=== PATIENT | male | born 1955 | race Caucasian/White ===

== ENCOUNTER 2018-04-02 09:16 | Inpatient (IN) | payer MEDICAID, OTHER ==
[~2018-04-02] VITALS: Ht 177.8 cm; Wt 74.8 kg
[~2018-04-02 09:16] MED LIST: ACET-2247 PO; ASPI-556 PO; ATOR40TA28 PO; AUD NEB; BISA5TAB12 PO; CARV6 PO; FURO20 PO; LEVO750P3 PO; PANT40TA25 PEG
[2018-04-02] MEDS ORDERED: BISA5TAB12 PO (09:27)
[2018-04-02] MEDS ORDERED: FLUC100T PO (09:27)
[2018-04-02] MEDS ORDERED: ATOR10TA84 PO (09:27)
[2018-04-02] MEDS ORDERED: SAW/1TAB2 PO (09:28)
[2018-04-02 09:34] LABS: GLUCOSE,POINT OF CARE 368 MG/DL (70-110)
[2018-04-02] MEDS ORDERED: SODIUM CHLORIDE 0.9% 1,000 ML IV ONE ×2 (09:45→11:15)
[2018-04-02 09:54] LABS: BASOPHILS % (AUTO) 0.5 % (0.0-2.0); EOSINOPHILS % (AUTO) 0 % (1.0-6.0); HEMATOCRIT 43.6 % (41-53); HEMOGLOBIN 14.4 g/dL (13.5-17.5); LYMPHOCYTES # (AUTO) 1.7 K/uL (1.0-4.8); LYMPHOCYTES % (AUTO) 8.6 % (22.0-44.0); MEAN CORPUSCULAR HEMOGLOBIN 31.3 pg (26.0-34.0); MEAN CORPUSCULAR HGB CONC 33.1 G/dL (31.0-37.0); MEAN CORPUSCULAR VOLUME 95 fL (80-100); MONOCYTES # (AUTO) 1.4 K/uL (0.1-1.0); MONOCYTES % (AUTO) 7.1 % (2.0-9.0); NEUTROPHILS # (AUTO) 16.2 K/uL (1.8-7.7); NEUTROPHILS % (AUTO) 83.8 % (40.0-70.0); PLATELET COUNT (AUTO) 507 K/uL (150-450); RED BLOOD CELL COUNT(AUTO) 4.61 MIL/uL (4.50-5.90); RED CELL DISTRIBUTION WIDTH 13.3 % (11.5-14.5)
[2018-04-02] MEDS ORDERED: ACETAMINOPHEN 1000 MG/ISO-OSM 100 ML IV ONE (10:00)
[2018-04-02 10:04] LABS: APPEARANCE,URINE CLEAR (CLEAR); BILIRUBIN,URINE NEGATIVE (NEGATIVE); GLUCOSE, URINE (UA) 100 mg/dL (NEGATIVE); KETONES,URINE NEGATIVE (NEGATIVE); LEUKOCYTE ESTERASE ,URINE NEGATIVE (NEGATIVE); NITRATE,URINE NEGATIVE (NEGATIVE); OCCULT BLOOD,URINE NEGATIVE (NEGATIVE); PH,URINE 5.5 (5.0-8.0); PROTEIN,URINE POS 1+ (NEGATIVE); UROBILINOGEN,URINE 0.2 mg/dL (<=1.0)
[2018-04-02 10:09] LABS: ANION GAP 14 mmol/L (8-16); CALCIUM, TOTAL 9.4 mg/dL (8.8-10.5); CARBON DIOXIDE 25 mmol/L (22-29); CHLORIDE 109 mmol/L (98-107); CREATININE 2.69 mg/dL (0.60-1.30); GLOMERULAR FILTR. RATE CALC 24 mL/min (>60); GLUCOSE,RANDOM 375 mg/dL (70-110); POTASSIUM 5.9 mmol/L (3.5-5.1); SODIUM SERUM 148 mmol/L (136-145); UREA NITROGEN, BLOOD 79 mg/dL (7-18)
[2018-04-02 10:11] LABS: INR 1.1 (0.9-1.1)
[2018-04-02 10:27] LABS: BACTERIA,URINE None Seen /HPF (None Seen); HYALINE CASTS, URINE 0-2 /LPF (None Seen); RBC,URINE 0-2 /HPF (0-2); TRANSITIONAL EPI CELLS,URINE Few /LPF (None Seen); WBC,URINE 0-2 /HPF (0-5)
[2018-04-02 10:32] LABS: ALANINE AMINOTRANSFERASE 75 U/L (12-78); ALBUMIN 3.4 g/dL (3.4-5.0); ALKALINE PHOSPHATASE 89 U/L (46-116); ASPARTATE AMINOTRANSFERASE 34 U/L (15-37); BILIRUBIN,TOTAL 0.5 mg/dL (0.1-1.0); CREATINE KINASE, TOTAL 109 U/L (39-308)
[2018-04-02 10:58] LABS: B-TYPE NATRIURETIC PEPTIDE 4070 pg/mL (0-100)
[2018-04-02] MEDS ORDERED: INSULIN REGULAR, HUMAN 100 UNITS/ML SQ ONE (11:00)
[2018-04-02] MEDS ORDERED: PIPERACILLIN/TAZO 3.375 GM/D5W 50 ML IV ONE (11:00)
[2018-04-02] MEDS ORDERED: VANCOMYCIN HCL 1 GM/D5% WATER 200 ML IV ONE (11:00)
[2018-04-02 11:01] LABS: LACTIC ACID 3.3 mmol/L (0.4-2.0)
[2018-04-02 11:28] LABS: GLUCOSE,POINT OF CARE 334 MG/DL (70-110)
[2018-04-02 12:13] LABS: INFLUENZA TYPE A NEGATIVE FOR TYPE A (NEGATIVE); INFLUENZA TYPE B NEGATIVE FOR TYPE B (NEGATIVE)
[2018-04-02] MEDS ORDERED: 0.9% SODIUM CHLORIDE 10 ML SYRINGE IVP PRN (12:15)
[2018-04-02] MEDS ORDERED: ACETAMINOPHEN 325 MG TABLET PO PRN (12:15)
[2018-04-02] MEDS ORDERED: BISACODYL 10 MG RECTAL RECTAL SUPPOSITORY PR PRN (12:30)
[2018-04-02] MEDS ORDERED: DEXTROSE 50%-WATER 25 GM/50 ML SYRINGE IVP PRN (12:30)
[2018-04-02] MEDS ORDERED: ALBUTEROL SULFATE 2.5 MG/0.5 ML NEB SOLUTION NEB PRN (12:30)
[2018-04-02] MEDS ORDERED: ONDANSETRON HCL 4 MG/2 ML VIAL IVP PRN (12:30)
[2018-04-02] MEDS ORDERED: SODIUM POLYSTYRENE SULFONATE 15 GM/60 ML SUSPENSION BOTTLE PO ONE (12:45)
[2018-04-02 12:59] LABS: GLUCOSE,POINT OF CARE 337 MG/DL (70-110)
[2018-04-02] MEDS ORDERED: ASPIRIN 600 MG RECTAL SUPPOSITORY PR ONE (14:15)
[2018-04-02] MEDS ORDERED: ASPIRIN 300 MG RECTAL SUPPOSITORY PR ONE (14:15)
[2018-04-02] MEDS: ASPIRIN 81 MG CHEWABLE TABLET PO SCH (14:58)
[2018-04-02] MEDS ORDERED: DOPamine HCL 200 MG/D5%-WATER 250 ML IV PRN (15:00)
[2018-04-02] MEDS ORDERED: DOPamine HCL 400 MG/D5%-WATER 250 ML IV PRN (15:00)
[2018-04-02 15:40] LABS: CALCIUM, TOTAL 9.1 mg/dL (8.8-10.5); CREATININE 2.91 mg/dL (0.60-1.30)
[2018-04-02 15:43] LABS: POTASSIUM 5.9 mmol/L (3.5-5.1)
[2018-04-02 15:56] LABS: ABG A-A DIFF O2 206.2 mmHg (10-20.0); ABG BASE EXCESS -4.5 mmol/L (-2.0-3.0); ABG CARBOXYHEMOGLOBIN 0.7 % (0.0-1.5); ABG HCO3 21.2 mmol/L (22.0-26.0); ABG METHEMOGLOBIN 0.2 % (0.0-1.5); ABG OXYHEMOGLOBIN 99.1 % (94.0-100.0); ABG PCO2 39 mmHg (35-45); ABG PH 7.349 (7.35-7.450); ABG TOTAL HEMOGLOBIN 14.2 G/dL (12.0-18.0); PO2, ARTERIAL BG 467.5 mmHg (79.0-87.0); SOURCE, BLOOD GAS ARTERIAL; TEMPERATURE, FAHRENHEIT, BG 98.6 FAHREN (96.0-98.6)
[2018-04-02 15:57] LABS: O2 DEVICE,BLOOD GAS VENTILATOR (ROOM AIR); PEEP,BG 5 cm H2O; SITE, BLOOD GAS RT RADIAL; VT, ABG 500 ml
[2018-04-02 16:00] VITALS: BP_SYST 103; BP_SYST 104; BP_DIAS 81; BP_DIAS 82
[2018-04-02] MEDS ORDERED: SODIUM CHLORIDE 0.9% 500 ML IV ONE (16:01)
[2018-04-02] MEDS: PIPERACILLIN SODIUM/TAZOBACTAM 2.25 GM in DEXTROSE 5%-WATER 50 ML IV SCH ×2 (16:04→22:59)
[2018-04-02 16:13] LABS: LACTIC ACID 4.5 mmol/L (0.4-2.0)
[2018-04-02] MEDS: INSULIN LISPRO 100 UNITS/ML SQ PRN ×2 (16:21→23:38)
[2018-04-02] MEDS ORDERED: PHENYLEPHRINE 200 MG/D5%-WATER 250 ML IV PRN (16:56)
[2018-04-02] MEDS ORDERED: SODIUM POLYSTYRENE SULFONATE 15 GM/60 ML SUSPENSION BOTTLE PEG ONE (17:45)
[2018-04-02 18:00] VITALS: BP 90/60
[2018-04-02] MEDS ORDERED: WATER FOR INJECTION,STERILE 500 ML in DEXTROSE 5%-WATER 500 ML IV SCH (18:30)
[2018-04-02 18:59] LABS: GLUCOSE,POINT OF CARE 351 MG/DL (70-110)
[2018-04-02 20:00] VITALS: BP 116/61
[2018-04-02] MEDS: DOCUSATE SODIUM 100 MG CAPSULE PO SCH (20:18)
[2018-04-02] MEDS: SODIUM POLYSTYRENE SULFONATE 15 GM/60 ML SUSPENSION BOTTLE PEG SCH (20:18)
[2018-04-02] MEDS: HEPARIN SODIUM,PORCINE 5,000 UNITS/ML VIAL SQ SCH (20:20)
[2018-04-02] MEDS: MetroNIDAZOLE 500 MG/NACL 100 ML IV SCH (21:15)
[2018-04-02] MEDS ORDERED: SODIUM CHLORIDE 0.9% 250 ML IV ONE (21:16)
[2018-04-02] MEDS ORDERED: BARIUM SULFATE 0.1% SUSPENSION 450 ML BOTTLE ONE (21:17)
[2018-04-02 21:34] LABS: C.DIFF GDH ANTIGEN, Stool Negative (Negative); C.DIFF TOXINS A&B, Stool Negative (Negative)
[2018-04-02 21:57] LABS: POTASSIUM 4.2 mmol/L (3.5-5.1)
[2018-04-03] VITALS: BP 124/82
[2018-04-03 00:06] LABS: BILIRUBIN,TOTAL 0.8 mg/dL (0.1-1.0); CREATININE 2.89 mg/dL (0.60-1.30); PHOSPHORUS 5.6 mg/dL (2.5-4.9)
[2018-04-03 00:07] LABS: ALBUMIN 3.1 g/dL (3.4-5.0)
[2018-04-03 04:00] VITALS: BP 104/70
[2018-04-03] MEDS: PIPERACILLIN SODIUM/TAZOBACTAM 2.25 GM in DEXTROSE 5%-WATER 50 ML IV SCH ×4 (04:54→23:22)
[2018-04-03 05:16] LABS: BASOPHILS % (AUTO) 0.7 % (0.0-2.0); EOSINOPHILS % (AUTO) 0.3 % (1.0-6.0); HEMATOCRIT 38.5 % (41-53); HEMOGLOBIN 12.8 g/dL (13.5-17.5); LYMPHOCYTES # (AUTO) 1.8 K/uL (1.0-4.8); LYMPHOCYTES % (AUTO) 9.7 % (22.0-44.0); MEAN CORPUSCULAR HEMOGLOBIN 31.8 pg (26.0-34.0); MEAN CORPUSCULAR HGB CONC 33.4 G/dL (31.0-37.0); MEAN CORPUSCULAR VOLUME 95 fL (80-100); MONOCYTES # (AUTO) 1.8 K/uL (0.1-1.0); MONOCYTES % (AUTO) 9.6 % (2.0-9.0); NEUTROPHILS # (AUTO) 14.9 K/uL (1.8-7.7); NEUTROPHILS % (AUTO) 79.7 % (40.0-70.0); PLATELET COUNT (AUTO) 385 K/uL (150-450); RED BLOOD CELL COUNT(AUTO) 4.04 MIL/uL (4.50-5.90); RED CELL DISTRIBUTION WIDTH 13.4 % (11.5-14.5)
[2018-04-03] MEDS: MetroNIDAZOLE 500 MG/NACL 100 ML IV SCH ×3 (05:26→20:03)
[2018-04-03 05:31] LABS: ALBUMIN 2.9 g/dL (3.4-5.0); BILIRUBIN,TOTAL 0.8 mg/dL (0.1-1.0); CALCIUM, TOTAL 8.8 mg/dL (8.8-10.5); CREATININE 2.45 mg/dL (0.60-1.30); POTASSIUM 3.6 mmol/L (3.5-5.1); TOTAL PROTEIN, SERUM 7.6 g/dL (6.4-8.2)
[2018-04-03 06:44] LABS: GLUCOSE,POINT OF CARE 268 MG/DL (70-110)
[2018-04-03 08:00] VITALS: BP 130/77
[2018-04-03] MEDS: VANCOMYCIN HCL 1 GM/D5% WATER 200 ML IV SCH (08:22)
[2018-04-03] MEDS: INSULIN LISPRO 100 UNITS/ML SQ PRN ×4 (08:26→23:23)
[2018-04-03 08:32] LABS: ABG A-A DIFF O2 66.3 mmHg (10-20.0); ABG BASE EXCESS 2.4 mmol/L (-2.0-3.0); ABG CARBOXYHEMOGLOBIN 0.7 % (0.0-1.5); ABG HCO3 26.7 mmol/L (22.0-26.0); ABG METHEMOGLOBIN 0.1 % (0.0-1.5); ABG OXYGEN CONTENT 18.9 mL/dL (15.0-23.0); ABG OXYGEN SATURATION 99.4 % (95.0-98.0); ABG OXYHEMOGLOBIN 98.6 % (94.0-100.0); ABG PCO2 39 mmHg (35-45); ABG PH 7.448 (7.35-7.450); ABG TOTAL HEMOGLOBIN 13.4 G/dL (12.0-18.0); O2 DEVICE,BLOOD GAS VENTILATOR (ROOM AIR); PEEP,BG 5 cm H2O; PO2, ARTERIAL BG 173.9 mmHg (79.0-87.0); SITE, BLOOD GAS RT RADIAL; SOURCE, BLOOD GAS ARTERIAL; TEMPERATURE, FAHRENHEIT, BG 98.8 FAHREN (96.0-98.6); VT, ABG 500 ml
[2018-04-03] MEDS: DOCUSATE SODIUM 100 MG CAPSULE PO SCH ×2 (09:00→20:03)
[2018-04-03] MEDS: CARVEDILOL 3.125 MG TABLET PO SCH ×2 (09:00→20:03)
[2018-04-03] MEDS: SODIUM POLYSTYRENE SULFONATE 15 GM/60 ML SUSPENSION BOTTLE PEG SCH (09:00)
[2018-04-03] MEDS: ATORVASTATIN CALCIUM 20 MG TABLET PO SCH (09:18)
[2018-04-03] MEDS: PANTOPRAZOLE SODIUM 40 MG DR TABLET PO SCH (09:18)
[2018-04-03] MEDS: HEPARIN SODIUM,PORCINE 5,000 UNITS/ML VIAL SQ SCH ×2 (09:18→20:03)
[2018-04-03] MEDS: ASPIRIN 81 MG CHEWABLE TABLET PO SCH (09:19)
[2018-04-03 10:34] LABS: GLUCOSE,POINT OF CARE 225 MG/DL (70-110)
[2018-04-03 12:00] VITALS: BP 102/59
[2018-04-03 12:19] LABS: GLUCOSE,POINT OF CARE 247 MG/DL (70-110)
[2018-04-03 16:00] VITALS: BP 116/82
[2018-04-03 16:49] LABS: CALCIUM, TOTAL 8.6 mg/dL (8.8-10.5); CREATININE 2.02 mg/dL (0.60-1.30); POTASSIUM 3.4 mmol/L (3.5-5.1)
[2018-04-03 16:57] LABS: LACTIC ACID 1.8 mmol/L (0.4-2.0)
[2018-04-03] MEDS ORDERED: AMIODARONE HCL 50 MG/ML 3 ML VIAL IVP ONE (17:13)
[2018-04-03] MEDS: POTASSIUM CHL 10 MEQ/WATER 50 ML IV SCH ×2 (17:24→18:04)
[2018-04-03 17:44] LABS: GLUCOSE,POINT OF CARE 191 MG/DL (70-110)
[2018-04-03 20:00] VITALS: BP 118/76
[2018-04-04] VITALS: BP 104/68
[2018-04-04 04:00] VITALS: BP 118/76
[2018-04-04] MEDS: PIPERACILLIN SODIUM/TAZOBACTAM 2.25 GM in DEXTROSE 5%-WATER 50 ML IV SCH ×4 (04:55→23:31)
[2018-04-04 05:16] LABS: BASOPHILS % (AUTO) 0.5 % (0.0-2.0); EOSINOPHILS % (AUTO) 1.8 % (1.0-6.0); HEMATOCRIT 35.9 % (41-53); LYMPHOCYTES # (AUTO) 2.2 K/uL (1.0-4.8); LYMPHOCYTES % (AUTO) 13.6 % (22.0-44.0); MEAN CORPUSCULAR HEMOGLOBIN 31.5 pg (26.0-34.0); MEAN CORPUSCULAR HGB CONC 33.3 G/dL (31.0-37.0); MEAN CORPUSCULAR VOLUME 95 fL (80-100); MONOCYTES # (AUTO) 1.5 K/uL (0.1-1.0); MONOCYTES % (AUTO) 9.5 % (2.0-9.0); NEUTROPHILS # (AUTO) 11.8 K/uL (1.8-7.7); NEUTROPHILS % (AUTO) 74.6 % (40.0-70.0); PLATELET COUNT (AUTO) 351 K/uL (150-450); RED CELL DISTRIBUTION WIDTH 13.1 % (11.5-14.5)
[2018-04-04 05:24] LABS: ALBUMIN 2.7 g/dL (3.4-5.0); BILIRUBIN,TOTAL 0.9 mg/dL (0.1-1.0); CALCIUM, TOTAL 8.7 mg/dL (8.8-10.5); CREATININE 1.99 mg/dL (0.60-1.30); MAGNESIUM 2.2 mg/dL (1.80-2.40); POTASSIUM 3.9 mmol/L (3.5-5.1); TOTAL PROTEIN, SERUM 7.1 g/dL (6.4-8.2)
[2018-04-04] MEDS: MetroNIDAZOLE 500 MG/NACL 100 ML IV SCH ×2 (05:25→12:56)
[2018-04-04] MEDS: INSULIN LISPRO 100 UNITS/ML SQ PRN ×4 (05:26→23:33)
[2018-04-04 06:59] LABS: GLUCOSE,POINT OF CARE 190 MG/DL (70-110)
[2018-04-04 06:59] LABS: GLUCOSE,POINT OF CARE 174 MG/DL (70-110)
[2018-04-04 08:00] VITALS: BP 117/77
[2018-04-04] MEDS: VANCOMYCIN HCL 1 GM/D5% WATER 200 ML IV SCH (08:30)
[2018-04-04] MEDS: DOCUSATE SODIUM 100 MG CAPSULE PO SCH ×2 (09:00→20:02)
[2018-04-04] MEDS: ASPIRIN 81 MG CHEWABLE TABLET PO SCH (09:14)
[2018-04-04] MEDS: ATORVASTATIN CALCIUM 20 MG TABLET PO SCH (09:15)
[2018-04-04] MEDS: PANTOPRAZOLE SODIUM 40 MG DR TABLET PO SCH (09:15)
[2018-04-04] MEDS: CARVEDILOL 3.125 MG TABLET PO SCH ×2 (09:15→20:02)
[2018-04-04] MEDS: HEPARIN SODIUM,PORCINE 5,000 UNITS/ML VIAL SQ SCH ×2 (09:16→20:02)
[2018-04-04 12:00] VITALS: BP 93/59
[2018-04-04] MEDS: LevETIRAcetam 500 MG in DEXTROSE 5%-WATER 100 ML IV SCH (13:56)
[2018-04-04 16:00] VITALS: BP 111/76
[2018-04-04 19:08] LABS: GLUCOSE,POINT OF CARE 191 MG/DL (70-110)
[2018-04-04 19:08] LABS: GLUCOSE,POINT OF CARE 215 MG/DL (70-110)
[2018-04-04 20:00] VITALS: BP 102/67
[2018-04-04] MEDS ORDERED: SODIUM CHLORIDE 0.9% 100 ML ONE (21:10)
[2018-04-05] VITALS: BP 109/73
[2018-04-05] MEDS: LevETIRAcetam 500 MG in DEXTROSE 5%-WATER 100 ML IV SCH ×2 (01:11→12:43)
[2018-04-05 04:00] VITALS: BP 101/63
[2018-04-05 05:25] LABS: CALCIUM, TOTAL 8.3 mg/dL (8.8-10.5); CREATININE 1.7 mg/dL (0.60-1.30); POTASSIUM 3.6 mmol/L (3.5-5.1); VANCOMYCIN,RANDOM 16.5 mcg/mL (25.0-50.0)
[2018-04-05] MEDS: PIPERACILLIN SODIUM/TAZOBACTAM 2.25 GM in DEXTROSE 5%-WATER 50 ML IV SCH (05:41)
[2018-04-05] MEDS: INSULIN LISPRO 100 UNITS/ML SQ PRN ×4 (05:42→23:18)
[2018-04-05 08:00] VITALS: BP 108/77
[2018-04-05 08:14] LABS: GLUCOSE,POINT OF CARE 190 MG/DL (70-110)
[2018-04-05 08:14] LABS: GLUCOSE,POINT OF CARE 255 MG/DL (70-110)
[2018-04-05] MEDS: VANCOMYCIN HCL 1.25 GM in DEXTROSE 5%-WATER 250 ML IV SCH (08:47)
[2018-04-05] MEDS: ASPIRIN 81 MG CHEWABLE TABLET PO SCH (08:48)
[2018-04-05] MEDS: ATORVASTATIN CALCIUM 20 MG TABLET PO SCH (08:48)
[2018-04-05] MEDS: HEPARIN SODIUM,PORCINE 5,000 UNITS/ML VIAL SQ SCH ×2 (08:48→20:04)
[2018-04-05] MEDS: PANTOPRAZOLE SODIUM 40 MG DR TABLET PO SCH (08:48)
[2018-04-05] MEDS: DOCUSATE SODIUM 100 MG CAPSULE PO SCH ×2 (08:48→20:05)
[2018-04-05] MEDS: CARVEDILOL 3.125 MG TABLET PO SCH ×2 (08:48→20:03)
[2018-04-05 09:02] LABS: ABG A-A DIFF O2 57.9 mmHg (10-20.0); ABG BASE EXCESS 1.7 mmol/L (-2.0-3.0); ABG CARBOXYHEMOGLOBIN 0.5 % (0.0-1.5); ABG HCO3 26.1 mmol/L (22.0-26.0); ABG METHEMOGLOBIN 0.3 % (0.0-1.5); ABG OXYGEN CONTENT 16.8 mL/dL (15.0-23.0); ABG OXYGEN SATURATION 99.3 % (95.0-98.0); ABG OXYHEMOGLOBIN 98.5 % (94.0-100.0); ABG PCO2 37 mmHg (35-45); ABG PH 7.457 (7.35-7.450); ABG TOTAL HEMOGLOBIN 11.9 G/dL (12.0-18.0); O2 DEVICE,BLOOD GAS VENTILATOR (ROOM AIR); PO2, ARTERIAL BG 148.8 mmHg (79.0-87.0); SITE, BLOOD GAS RT RADIAL; SOURCE, BLOOD GAS ARTERIAL; TEMPERATURE, FAHRENHEIT, BG 98.2 FAHREN (96.0-98.6)
[2018-04-05] MEDS ORDERED: SODIUM CHLORIDE 0.9% 100 ML ONE (09:02)
[2018-04-05 09:03] LABS: PEEP,BG 5 cm H2O; VT, ABG 500 ml
[2018-04-05] MEDS: PIPERACILLIN/TAZO 3.375 GM/D5W 50 ML IV SCH ×3 (11:01→23:18)
[2018-04-05 12:00] VITALS: BP 114/77
[2018-04-05 15:29] LABS: GLUCOSE,POINT OF CARE 316 MG/DL (70-110)
[2018-04-05 16:00] VITALS: BP 102/73
[2018-04-05 18:34] LABS: GLUCOSE,POINT OF CARE 279 MG/DL (70-110)
[2018-04-05 19:15] LABS: ABG A-A DIFF O2 66.5 mmHg (10-20.0); ABG BASE EXCESS 1.4 mmol/L (-2.0-3.0); ABG CARBOXYHEMOGLOBIN 0.9 % (0.0-1.5); ABG HCO3 26.1 mmol/L (22.0-26.0); ABG METHEMOGLOBIN 0.3 % (0.0-1.5); ABG OXYGEN CONTENT 17.9 mL/dL (15.0-23.0); ABG OXYGEN SATURATION 99.3 % (95.0-98.0); ABG OXYHEMOGLOBIN 98.1 % (94.0-100.0); ABG PCO2 34 mmHg (35-45); ABG PH 7.481 (7.35-7.450); ABG TOTAL HEMOGLOBIN 12.8 G/dL (12.0-18.0); PO2, ARTERIAL BG 143.2 mmHg (79.0-87.0); SOURCE, BLOOD GAS ARTERIAL; TEMPERATURE, FAHRENHEIT, BG 99.1 FAHREN (96.0-98.6)
[2018-04-05 19:16] LABS: O2 DEVICE,BLOOD GAS VENTILATOR (ROOM AIR); PEEP,BG 5 cm H2O; PRESSURE SUPPORT, BG 8 cm H2O; SITE, BLOOD GAS LFT RADIAL; VENT MODE, BG CPAP (ROOM AIR)
[2018-04-05 19:17] LABS: SPONTANEOUS VT, BG 469 ml
[2018-04-05 20:00] VITALS: BP 109/70
[2018-04-05] MEDS: INSULIN GLARGINE,HUM.REC.ANLOG 100 UNITS/ML SQ SCH (20:05)
[2018-04-05 20:34] LABS: GLUCOSE,POINT OF CARE 214 MG/DL (70-110)
[2018-04-06] VITALS: BP 114/75
[2018-04-06 04:00] VITALS: BP 106/66
[2018-04-06] MEDS: INSULIN LISPRO 100 UNITS/ML SQ PRN ×3 (05:22→19:03)
[2018-04-06] MEDS: PIPERACILLIN/TAZO 3.375 GM/D5W 50 ML IV SCH ×2 (05:23→10:26)
[2018-04-06 05:31] LABS: BASOPHILS % (AUTO) 0.4 % (0.0-2.0); EOSINOPHILS % (AUTO) 3.9 % (1.0-6.0); HEMATOCRIT 33.3 % (41-53); HEMOGLOBIN 11.2 g/dL (13.5-17.5); LYMPHOCYTES # (AUTO) 1.7 K/uL (1.0-4.8); MEAN CORPUSCULAR HEMOGLOBIN 31.9 pg (26.0-34.0); MEAN CORPUSCULAR HGB CONC 33.8 G/dL (31.0-37.0); MEAN CORPUSCULAR VOLUME 94 fL (80-100); MONOCYTES # (AUTO) 0.9 K/uL (0.1-1.0); MONOCYTES % (AUTO) 7.9 % (2.0-9.0); NEUTROPHILS # (AUTO) 8.3 K/uL (1.8-7.7); NEUTROPHILS % (AUTO) 72.8 % (40.0-70.0); PLATELET COUNT (AUTO) 311 K/uL (150-450); RED BLOOD CELL COUNT(AUTO) 3.53 MIL/uL (4.50-5.90); RED CELL DISTRIBUTION WIDTH 12.8 % (11.5-14.5)
[2018-04-06 05:33] LABS: CREATININE 1.64 mg/dL (0.60-1.30); POTASSIUM 3.6 mmol/L (3.5-5.1)
[2018-04-06 05:34] LABS: CALCIUM, TOTAL 8.3 mg/dL (8.8-10.5)
[2018-04-06 07:54] LABS: GLUCOSE,POINT OF CARE 199 MG/DL (70-110)
[2018-04-06 07:54] LABS: GLUCOSE,POINT OF CARE 240 MG/DL (70-110)
[2018-04-06 08:00] VITALS: BP 116/75
[2018-04-06] MEDS: VANCOMYCIN HCL 1.25 GM in DEXTROSE 5%-WATER 250 ML IV SCH (08:53)
[2018-04-06] MEDS: DOCUSATE SODIUM 100 MG CAPSULE PO SCH ×2 (09:14→21:00)
[2018-04-06] MEDS: ASPIRIN 81 MG CHEWABLE TABLET PO SCH (09:15)
[2018-04-06] MEDS: CARVEDILOL 3.125 MG TABLET PO SCH ×2 (09:15→21:25)
[2018-04-06] MEDS: MAGNESIUM OXIDE 400 MG TABLET PO SCH (09:15)
[2018-04-06] MEDS: ATORVASTATIN CALCIUM 20 MG TABLET PO SCH (09:15)
[2018-04-06] MEDS: PANTOPRAZOLE SODIUM 40 MG/VIAL IVP SCH (09:16)
[2018-04-06] MEDS: HEPARIN SODIUM,PORCINE 5,000 UNITS/ML VIAL SQ SCH ×2 (09:16→21:25)
[2018-04-06] MEDS ORDERED: SODIUM CHLORIDE 0.9% 500 ML IV ONE (09:47)
[2018-04-06 12:00] VITALS: BP 105/68
[2018-04-06 12:59] LABS: GLUCOSE,POINT OF CARE 295 MG/DL (70-110)
[2018-04-06 16:00] VITALS: BP 100/62
[2018-04-06] MEDS: MEROPENEM 1 GM in SODIUM CHLORIDE 0.9% 100 ML IV SCH (17:35)
[2018-04-06 19:34] LABS: GLUCOSE,POINT OF CARE 287 MG/DL (70-110)
[2018-04-06 20:00] VITALS: BP 113/73
[2018-04-06] MEDS: INSULIN GLARGINE,HUM.REC.ANLOG 100 UNITS/ML SQ SCH (21:27)
[2018-04-07] VITALS: BP 99/66
[2018-04-07] MEDS: INSULIN LISPRO 100 UNITS/ML SQ PRN ×4 (00:10→17:28)
[2018-04-07 02:13] LABS: GLUCOSE,POINT OF CARE 230 MG/DL (70-110)
[2018-04-07 02:13] LABS: GLUCOSE,POINT OF CARE 247 MG/DL (70-110)
[2018-04-07 04:00] VITALS: BP 115/48
[2018-04-07] MEDS: MEROPENEM 1 GM in SODIUM CHLORIDE 0.9% 100 ML IV SCH ×2 (04:57→16:21)
[2018-04-07 06:17] LABS: CALCIUM, TOTAL 8.4 mg/dL (8.8-10.5); CREATININE 1.41 mg/dL (0.60-1.30)
[2018-04-07 06:24] LABS: GLUCOSE,POINT OF CARE 220 MG/DL (70-110)
[2018-04-07 08:00] VITALS: BP 99/66
[2018-04-07] MEDS: ASPIRIN 81 MG CHEWABLE TABLET PO SCH (09:00)
[2018-04-07] MEDS: PANTOPRAZOLE SODIUM 40 MG/VIAL IVP SCH (09:00)
[2018-04-07] MEDS: DOCUSATE SODIUM 100 MG CAPSULE PO SCH ×2 (09:00→20:21)
[2018-04-07] MEDS: MAGNESIUM OXIDE 400 MG TABLET PO SCH (09:01)
[2018-04-07] MEDS: CARVEDILOL 3.125 MG TABLET PO SCH ×2 (09:01→20:21)
[2018-04-07] MEDS: ATORVASTATIN CALCIUM 20 MG TABLET PO SCH (09:01)
[2018-04-07] MEDS: HEPARIN SODIUM,PORCINE 5,000 UNITS/ML VIAL SQ SCH ×2 (09:02→20:21)
[2018-04-07 12:00] VITALS: BP 101/69
[2018-04-07 12:29] LABS: GLUCOSE,POINT OF CARE 229 MG/DL (70-110)
[2018-04-07 15:01] LABS: ALBUMIN URINE (ELP) Note: %
[2018-04-07 16:00] VITALS: BP 108/64
[2018-04-07 17:58] LABS: GLUCOSE,POINT OF CARE 210 MG/DL (70-110)
[2018-04-07 20:00] VITALS: BP 103/60
[2018-04-07] MEDS: INSULIN GLARGINE,HUM.REC.ANLOG 100 UNITS/ML SQ SCH (20:22)
[2018-04-07] MEDS ORDERED: AMINO ACIDS/PROTEIN HYDROLYS 30 ML TUBE PEG SCH (21:00)
[2018-04-08] VITALS: BP 106/71
[2018-04-08] MEDS: MEROPENEM 1 GM in SODIUM CHLORIDE 0.9% 100 ML IV SCH ×3 (00:18→16:53)
[2018-04-08] MEDS: INSULIN LISPRO 100 UNITS/ML SQ PRN ×4 (00:19→17:42)
[2018-04-08 04:00] VITALS: BP 104/65
[2018-04-08 05:18] LABS: BASOPHILS % (AUTO) 0.6 % (0.0-2.0); EOSINOPHILS % (AUTO) 5.1 % (1.0-6.0); HEMATOCRIT 32.5 % (41-53); HEMOGLOBIN 10.8 g/dL (13.5-17.5); LYMPHOCYTES # (AUTO) 2.2 K/uL (1.0-4.8); MEAN CORPUSCULAR HEMOGLOBIN 31.1 pg (26.0-34.0); MEAN CORPUSCULAR HGB CONC 33.2 G/dL (31.0-37.0); MEAN CORPUSCULAR VOLUME 94 fL (80-100); MONOCYTES # (AUTO) 0.9 K/uL (0.1-1.0); MONOCYTES % (AUTO) 7.9 % (2.0-9.0); NEUTROPHILS # (AUTO) 8.2 K/uL (1.8-7.7); NEUTROPHILS % (AUTO) 68.4 % (40.0-70.0); PLATELET COUNT (AUTO) 310 K/uL (150-450); RED BLOOD CELL COUNT(AUTO) 3.47 MIL/uL (4.50-5.90); RED CELL DISTRIBUTION WIDTH 12.6 % (11.5-14.5)
[2018-04-08 05:20] LABS: CALCIUM, TOTAL 8.5 mg/dL (8.8-10.5); CREATININE 1.37 mg/dL (0.60-1.30); POTASSIUM 4.1 mmol/L (3.5-5.1)
[2018-04-08 06:39] LABS: GLUCOSE,POINT OF CARE 145 MG/DL (70-110)
[2018-04-08 06:44] LABS: GLUCOSE,POINT OF CARE 150 MG/DL (70-110)
[2018-04-08 06:44] LABS: GLUCOSE,POINT OF CARE 142 MG/DL (70-110)
[2018-04-08 08:00] VITALS: BP 105/67
[2018-04-08] MEDS: DOCUSATE SODIUM 100 MG CAPSULE PO SCH ×2 (09:00→20:04)
[2018-04-08] MEDS: PANTOPRAZOLE SODIUM 40 MG/VIAL IVP SCH (09:03)
[2018-04-08] MEDS: ASPIRIN 81 MG CHEWABLE TABLET PO SCH (09:04)
[2018-04-08] MEDS: ATORVASTATIN CALCIUM 20 MG TABLET PO SCH (09:05)
[2018-04-08] MEDS: MAGNESIUM OXIDE 400 MG TABLET PO SCH (09:05)
[2018-04-08] MEDS: HEPARIN SODIUM,PORCINE 5,000 UNITS/ML VIAL SQ SCH ×2 (09:06→19:31)
[2018-04-08] MEDS: CARVEDILOL 3.125 MG TABLET PO SCH ×2 (09:06→20:04)
[2018-04-08 12:00] VITALS: BP 101/86
[2018-04-08] MEDS: AMINO ACIDS/PROTEIN HYDROLYS 30 ML TUBE PO SCH ×2 (12:27→16:56)
[2018-04-08 13:38] LABS: GLUCOSE,POINT OF CARE 183 MG/DL (70-110)
[2018-04-08 16:00] VITALS: BP 96/65
[2018-04-08 17:58] LABS: INR 0.9 (0.9-1.1); PROTHROMBIN TIME 9.8 SEC (9.4-11.6)
[2018-04-08 18:19] LABS: GLUCOSE,POINT OF CARE 172 MG/DL (70-110)
[2018-04-08 20:00] VITALS: BP 105/71
[2018-04-08] MEDS: INSULIN GLARGINE,HUM.REC.ANLOG 100 UNITS/ML SQ SCH (20:04)
[2018-04-08 22:13] LABS: GLUCOSE,POINT OF CARE 125 MG/DL (70-110)
[2018-04-09] VITALS (7 sets, daily range): BP systolic 96–126; BP diastolic 60–89
[2018-04-09] MEDS: MEROPENEM 1 GM in SODIUM CHLORIDE 0.9% 100 ML IV SCH ×3 (01:01→16:43)
[2018-04-09 05:28] LABS: BASOPHILS % (AUTO) 0.5 % (0.0-2.0); EOSINOPHILS % (AUTO) 3.5 % (1.0-6.0); HEMATOCRIT 31.7 % (41-53); HEMOGLOBIN 11.1 g/dL (13.5-17.5); LYMPHOCYTES # (AUTO) 1.9 K/uL (1.0-4.8); LYMPHOCYTES % (AUTO) 16.3 % (22.0-44.0); MEAN CORPUSCULAR HEMOGLOBIN 32.5 pg (26.0-34.0); MEAN CORPUSCULAR VOLUME 93 fL (80-100); MONOCYTES # (AUTO) 0.8 K/uL (0.1-1.0); MONOCYTES % (AUTO) 7.4 % (2.0-9.0); NEUTROPHILS # (AUTO) 8.2 K/uL (1.8-7.7); NEUTROPHILS % (AUTO) 72.3 % (40.0-70.0); PLATELET COUNT (AUTO) 318 K/uL (150-450); RED BLOOD CELL COUNT(AUTO) 3.42 MIL/uL (4.50-5.90); RED CELL DISTRIBUTION WIDTH 12.7 % (11.5-14.5)
[2018-04-09 05:42] LABS: CALCIUM, TOTAL 8.4 mg/dL (8.8-10.5); CREATININE 1.28 mg/dL (0.60-1.30)
[2018-04-09 06:59] LABS: GLUCOSE,POINT OF CARE 147 MG/DL (70-110)
[2018-04-09 06:59] LABS: GLUCOSE,POINT OF CARE 132 MG/DL (70-110)
[2018-04-09] MEDS ORDERED: BUPIVACAINE HCL/PF 0.5% 30 ML VIAL ONE (06:59)
[2018-04-09] MEDS ORDERED: LIDOCAINE HCL 2%/EPI 1:200,000/PF 20 ML VIAL ONE (06:59)
[2018-04-09] MEDS ORDERED: GUM MASTIC/STORAX/MSAL/ALCOHOL LIQUID 0.67 ML VIAL TP ONE (06:59)
[2018-04-09] MEDS ORDERED: SODIUM CHLORIDE 0.9% 1,000 ML IV ONE (07:26)
[2018-04-09] MEDS: DOCUSATE SODIUM 100 MG CAPSULE PO SCH ×3 (08:16→21:00)
[2018-04-09] MEDS: HEPARIN SODIUM,PORCINE 5,000 UNITS/ML VIAL SQ SCH ×2 (08:21→21:10)
[2018-04-09] MEDS ORDERED: IBUPROFEN 600 MG TABLET PO PRN (08:45)
[2018-04-09] MEDS ORDERED: MORPHINE SULFATE 2 MG/ML SYRINGE IVP PRN (09:00)
[2018-04-09] MEDS: CARVEDILOL 3.125 MG TABLET PO SCH ×2 (09:00→20:54)
[2018-04-09] MEDS: ASPIRIN 81 MG CHEWABLE TABLET PO SCH (09:00)
[2018-04-09] MEDS: AMINO ACIDS/PROTEIN HYDROLYS 30 ML TUBE PO SCH ×2 (09:57→11:43)
[2018-04-09] MEDS: PANTOPRAZOLE SODIUM 40 MG/VIAL IVP SCH (09:58)
[2018-04-09] MEDS: ATORVASTATIN CALCIUM 20 MG TABLET PO SCH (09:58)
[2018-04-09] MEDS: MAGNESIUM OXIDE 400 MG TABLET PO SCH (09:58)
[2018-04-09] MEDS: ACETAMINOPHEN 500 MG TABLET PO PRN (09:59)
[2018-04-09] MEDS: PROPOFOL 1000 MG/ISO-OSM 100 ML IV PRN ×2 (11:49→19:45)
[2018-04-09] MEDS: MORPHINE SULFATE 2 MG/ML SYRINGE IVP PRN ×3 (11:49→21:56)
[2018-04-09 21:03] LABS: GLUCOSE,POINT OF CARE 133 MG/DL (70-110)
[2018-04-09] MEDS: INSULIN GLARGINE,HUM.REC.ANLOG 100 UNITS/ML SQ SCH (21:12)
[2018-04-09 23:28] LABS: GLUCOSE,POINT OF CARE 134 MG/DL (70-110)
[2018-04-09 23:28] LABS: GLUCOSE,POINT OF CARE 151 MG/DL (70-110)
[2018-04-10] VITALS (9 sets, daily range): BP systolic 90–111; BP diastolic 50–71
[2018-04-10] MEDS: MORPHINE SULFATE 2 MG/ML SYRINGE IVP PRN ×4 (00:30→20:00)
[2018-04-10] MEDS: INSULIN LISPRO 100 UNITS/ML SQ PRN ×5 (00:58→21:46)
[2018-04-10] MEDS: MEROPENEM 1 GM in SODIUM CHLORIDE 0.9% 100 ML IV SCH ×3 (00:59→16:21)
[2018-04-10] MEDS: PROPOFOL 1000 MG/ISO-OSM 100 ML IV PRN (03:03)
[2018-04-10] MEDS ORDERED: MIDAZOLAM HCL 2 MG/2 ML VIAL IVP ONE (05:17)
[2018-04-10] MEDS ORDERED: ROCURONIUM BROMIDE 10 MG/ML 5 ML VIAL IVP ONE (05:17)
[2018-04-10] MEDS ORDERED: KETAMINE HCL 50 MG/ML 10 ML VIAL IVP ONE (05:17)
[2018-04-10] MEDS ORDERED: LABETALOL HCL 5 MG/ML 20 ML VIAL IVP ONE (05:17)
[2018-04-10 05:42] LABS: BASOPHILS % (AUTO) 0.8 % (0.0-2.0); HEMATOCRIT 32.3 % (41-53); LYMPHOCYTES % (AUTO) 18.5 % (22.0-44.0); MEAN CORPUSCULAR HEMOGLOBIN 32.1 pg (26.0-34.0); MEAN CORPUSCULAR HGB CONC 34.2 G/dL (31.0-37.0); MEAN CORPUSCULAR VOLUME 94 fL (80-100); MONOCYTES # (AUTO) 1.1 K/uL (0.1-1.0); NEUTROPHILS % (AUTO) 66.7 % (40.0-70.0); PLATELET COUNT (AUTO) 292 K/uL (150-450); RED BLOOD CELL COUNT(AUTO) 3.44 MIL/uL (4.50-5.90); RED CELL DISTRIBUTION WIDTH 12.6 % (11.5-14.5)
[2018-04-10 05:55] LABS: CALCIUM, TOTAL 8.3 mg/dL (8.8-10.5); CREATININE 1.42 mg/dL (0.60-1.30); POTASSIUM 4.3 mmol/L (3.5-5.1)
[2018-04-10 06:29] LABS: GLUCOSE,POINT OF CARE 153 MG/DL (70-110)
[2018-04-10 06:29] LABS: GLUCOSE,POINT OF CARE 141 MG/DL (70-110)
[2018-04-10] MEDS: MAGNESIUM OXIDE 400 MG TABLET PO SCH (08:00)
[2018-04-10] MEDS: ATORVASTATIN CALCIUM 20 MG TABLET PO SCH (08:00)
[2018-04-10] MEDS: DOCUSATE SODIUM 100 MG CAPSULE PO SCH ×2 (08:00→21:00)
[2018-04-10] MEDS: AMINO ACIDS/PROTEIN HYDROLYS 30 ML TUBE PO SCH ×2 (08:00→12:12)
[2018-04-10] MEDS: ASPIRIN 81 MG CHEWABLE TABLET PO SCH (08:00)
[2018-04-10] MEDS: HEPARIN SODIUM,PORCINE 5,000 UNITS/ML VIAL SQ SCH ×2 (08:00→20:01)
[2018-04-10] MEDS: PANTOPRAZOLE SODIUM 40 MG/VIAL IVP SCH (08:01)
[2018-04-10] MEDS: CARVEDILOL 3.125 MG TABLET PO SCH ×2 (08:02→21:00)
[2018-04-10] MEDS: ACETAMINOPHEN 325 MG TABLET PO PRN ×2 (16:21→20:26)
[2018-04-10 17:03] LABS: GLUCOSE,POINT OF CARE 177 MG/DL (70-110)
[2018-04-10 17:59] LABS: GLUCOSE,POINT OF CARE 164 MG/DL (70-110)
[2018-04-10] MEDS: INSULIN GLARGINE,HUM.REC.ANLOG 100 UNITS/ML SQ SCH (21:43)
[2018-04-11] VITALS: BP 109/65
[2018-04-11] MEDS: INSULIN LISPRO 100 UNITS/ML SQ PRN ×4 (00:29→18:41)
[2018-04-11] MEDS: MEROPENEM 1 GM in SODIUM CHLORIDE 0.9% 100 ML IV SCH ×2 (00:30→08:10)
[2018-04-11 00:34] LABS: GLUCOSE,POINT OF CARE 147 MG/DL (70-110)
[2018-04-11] MEDS: ACETAMINOPHEN 325 MG TABLET PO PRN ×2 (01:40→09:33)
[2018-04-11 04:00] VITALS: BP 100/64
[2018-04-11] MEDS ORDERED: SODIUM CHLORIDE 0.9% 500 ML IV ONE (05:22)
[2018-04-11 06:18] LABS: GLUCOSE,POINT OF CARE 161 MG/DL (70-110)
[2018-04-11 06:18] LABS: GLUCOSE,POINT OF CARE 164 MG/DL (70-110)
[2018-04-11 08:00] VITALS: BP 106/63
[2018-04-11] MEDS: AMINO ACIDS/PROTEIN HYDROLYS 30 ML TUBE PO SCH ×2 (08:09→11:43)
[2018-04-11] MEDS: ATORVASTATIN CALCIUM 20 MG TABLET PO SCH (08:10)
[2018-04-11] MEDS: MAGNESIUM OXIDE 400 MG TABLET PO SCH (08:10)
[2018-04-11] MEDS: PANTOPRAZOLE SODIUM 40 MG/VIAL IVP SCH (08:10)
[2018-04-11] MEDS: HEPARIN SODIUM,PORCINE 5,000 UNITS/ML VIAL SQ SCH ×2 (08:11→20:50)
[2018-04-11] MEDS: CARVEDILOL 3.125 MG TABLET PO SCH ×2 (08:11→20:50)
[2018-04-11] MEDS: ASPIRIN 81 MG CHEWABLE TABLET PO SCH (08:11)
[2018-04-11] MEDS: DOCUSATE SODIUM 100 MG CAPSULE PO SCH ×2 (08:12→20:50)
[2018-04-11 11:09] LABS: ABG A-A DIFF O2 52.6 mmHg (10-20.0); ABG BASE EXCESS 1.5 mmol/L (-2.0-3.0); ABG CARBOXYHEMOGLOBIN 0.3 % (0.0-1.5); ABG HCO3 25.8 mmol/L (22.0-26.0); ABG METHEMOGLOBIN 0.2 % (0.0-1.5); ABG OXYGEN CONTENT 14.7 mL/dL (15.0-23.0); ABG OXYGEN SATURATION 99.2 % (95.0-98.0); ABG OXYHEMOGLOBIN 98.7 % (94.0-100.0); ABG PCO2 40 mmHg (35-45); ABG TOTAL HEMOGLOBIN 10.4 G/dL (12.0-18.0); O2 DEVICE,BLOOD GAS VENTILATOR (ROOM AIR); PEEP,BG 5 cm H2O; PO2, ARTERIAL BG 150.3 mmHg (79.0-87.0); SITE, BLOOD GAS RT RADIAL; SOURCE, BLOOD GAS ARTERIAL; TEMPERATURE, FAHRENHEIT, BG 99.7 FAHREN (96.0-98.6); VT, ABG 500 ml
[2018-04-11 12:00] VITALS: BP 98/58
[2018-04-11 13:35] LABS: ABG BASE EXCESS 0.7 mmol/L (-2.0-3.0); ABG CARBOXYHEMOGLOBIN 0.6 % (0.0-1.5); ABG HCO3 25.3 mmol/L (22.0-26.0); ABG METHEMOGLOBIN 0.3 % (0.0-1.5); ABG OXYGEN CONTENT 15.2 mL/dL (15.0-23.0); ABG OXYGEN SATURATION 98.7 % (95.0-98.0); ABG OXYHEMOGLOBIN 97.8 % (94.0-100.0); ABG PCO2 37 mmHg (35-45); ABG PH 7.441 (7.35-7.450); ABG TOTAL HEMOGLOBIN 10.9 G/dL (12.0-18.0); PO2, ARTERIAL BG 115.8 mmHg (79.0-87.0); SOURCE, BLOOD GAS ARTERIAL; TEMPERATURE, FAHRENHEIT, BG 99.4 FAHREN (96.0-98.6)
[2018-04-11 13:36] LABS: O2 DEVICE,BLOOD GAS TRACH COLLAR (ROOM AIR); SITE, BLOOD GAS RT RADIAL
[2018-04-11 15:24] VITALS: BP 131/70
[2018-04-11 17:38] LABS: GLUCOSE,POINT OF CARE 173 MG/DL (70-110)
[2018-04-11 20:00] VITALS: BP 105/62
[2018-04-11] MEDS: INSULIN GLARGINE,HUM.REC.ANLOG 100 UNITS/ML SQ SCH (20:52)
[2018-04-12] VITALS (7 sets, daily range): BP systolic 100–114; BP diastolic 59–70
[2018-04-12] MEDS: INSULIN LISPRO 100 UNITS/ML SQ PRN ×4 (00:13→18:24)
[2018-04-12] MEDS: ACETAMINOPHEN 325 MG TABLET PO PRN ×2 (04:32→20:45)
[2018-04-12 07:28] LABS: BASOPHILS % (AUTO) 0.5 % (0.0-2.0); EOSINOPHILS % (AUTO) 1.6 % (1.0-6.0); HEMATOCRIT 29.6 % (41-53); HEMOGLOBIN 10.3 g/dL (13.5-17.5); LYMPHOCYTES # (AUTO) 1.6 K/uL (1.0-4.8); LYMPHOCYTES % (AUTO) 14.5 % (22.0-44.0); MEAN CORPUSCULAR HEMOGLOBIN 32.4 pg (26.0-34.0); MEAN CORPUSCULAR HGB CONC 34.7 G/dL (31.0-37.0); MEAN CORPUSCULAR VOLUME 94 fL (80-100); MONOCYTES # (AUTO) 1.2 K/uL (0.1-1.0); MONOCYTES % (AUTO) 11.4 % (2.0-9.0); NEUTROPHILS # (AUTO) 7.9 K/uL (1.8-7.7); PLATELET COUNT (AUTO) 256 K/uL (150-450); RED BLOOD CELL COUNT(AUTO) 3.17 MIL/uL (4.50-5.90); RED CELL DISTRIBUTION WIDTH 12.7 % (11.5-14.5)
[2018-04-12 08:07] LABS: ALBUMIN 2.1 g/dL (3.4-5.0); BILIRUBIN,TOTAL 0.4 mg/dL (0.1-1.0); CALCIUM, TOTAL 8.3 mg/dL (8.8-10.5); CREATININE 1.29 mg/dL (0.60-1.30); MAGNESIUM 2.2 mg/dL (1.80-2.40); PHOSPHORUS 2.8 mg/dL (2.5-4.9); POTASSIUM 4.1 mmol/L (3.5-5.1); TOTAL PROTEIN, SERUM 6.6 g/dL (6.4-8.2)
[2018-04-12] MEDS: MAGNESIUM OXIDE 400 MG TABLET PO SCH (08:15)
[2018-04-12] MEDS: HEPARIN SODIUM,PORCINE 5,000 UNITS/ML VIAL SQ SCH ×2 (08:16→20:45)
[2018-04-12] MEDS: ASPIRIN 81 MG CHEWABLE TABLET PO SCH (08:16)
[2018-04-12] MEDS: ATORVASTATIN CALCIUM 20 MG TABLET PO SCH (08:16)
[2018-04-12] MEDS: PANTOPRAZOLE SODIUM 40 MG/VIAL IVP SCH (08:17)
[2018-04-12] MEDS: DOCUSATE SODIUM 100 MG CAPSULE PO SCH ×2 (08:18→20:46)
[2018-04-12] MEDS: CARVEDILOL 3.125 MG TABLET PO SCH ×2 (08:18→20:46)
[2018-04-12 08:19] LABS: GLUCOMETER DEV NAME(LOC) 5N 1P; GLUCOSE,POINT OF CARE 171 MG/DL (70-110)
[2018-04-12 08:19] LABS: GLUCOMETER DEV NAME(LOC) 5N 1P; GLUCOSE,POINT OF CARE 152 MG/DL (70-110)
[2018-04-12] MEDS: AMINO ACIDS/PROTEIN HYDROLYS 30 ML TUBE PO SCH ×2 (09:17→12:26)
[2018-04-12 11:34] LABS: GLUCOMETER DEV NAME(LOC) 5S 1M; GLUCOSE,POINT OF CARE 192 MG/DL (70-110)
[2018-04-12 11:34] LABS: GLUCOMETER DEV NAME(LOC) 5S 1M; GLUCOSE,POINT OF CARE 185 MG/DL (70-110)
[2018-04-12 16:44] LABS: GLUCOMETER DEV NAME(LOC) 5S 2Q; GLUCOSE,POINT OF CARE 196 MG/DL (70-110)
[2018-04-12] MEDS: INSULIN GLARGINE,HUM.REC.ANLOG 100 UNITS/ML SQ SCH (20:58)
[2018-04-12 22:38] LABS: GLUCOMETER DEV NAME(LOC) 5S 2Q; GLUCOSE,POINT OF CARE 204 MG/DL (70-110)
[2018-04-13] VITALS (7 sets, daily range): BP systolic 94–113; BP diastolic 57–67
[2018-04-13] MEDS: INSULIN LISPRO 100 UNITS/ML SQ PRN ×5 (00:23→23:25)
[2018-04-13] MEDS: ACETAMINOPHEN 500 MG TABLET PO PRN (00:43)
[2018-04-13] MEDS ORDERED: SODIUM CL IRRIG SOLN BOTTLE 250 ML IRRIG ONE (04:55)
[2018-04-13 05:33] LABS: CALCIUM, TOTAL 8.7 mg/dL (8.8-10.5); CREATININE 1.27 mg/dL (0.60-1.30); MAGNESIUM 2.2 mg/dL (1.80-2.40); POTASSIUM 4.2 mmol/L (3.5-5.1)
[2018-04-13] MEDS: DOCUSATE SODIUM 100 MG CAPSULE PO SCH ×2 (09:00→21:00)
[2018-04-13] MEDS: ATORVASTATIN CALCIUM 20 MG TABLET PO SCH (09:06)
[2018-04-13] MEDS: HEPARIN SODIUM,PORCINE 5,000 UNITS/ML VIAL SQ SCH ×2 (09:06→20:20)
[2018-04-13] MEDS: CARVEDILOL 3.125 MG TABLET PO SCH ×2 (09:06→20:20)
[2018-04-13] MEDS: ASPIRIN 81 MG CHEWABLE TABLET PO SCH (09:06)
[2018-04-13] MEDS: MAGNESIUM OXIDE 400 MG TABLET PO SCH (09:06)
[2018-04-13] MEDS: PANTOPRAZOLE SODIUM 40 MG/VIAL IVP SCH (09:07)
[2018-04-13] MEDS: AMINO ACIDS/PROTEIN HYDROLYS 30 ML TUBE PO SCH ×2 (09:07→12:15)
[2018-04-13 15:34] LABS: GLUCOMETER DEV NAME(LOC) 5N 1P; GLUCOSE,POINT OF CARE 178 MG/DL (70-110)
[2018-04-13] MEDS: ACETAMINOPHEN 325 MG TABLET PO PRN (20:20)
[2018-04-13] MEDS: INSULIN GLARGINE,HUM.REC.ANLOG 100 UNITS/ML SQ SCH (20:22)
[2018-04-13 20:48] LABS: GLUCOMETER DEV NAME(LOC) 5S 1M; GLUCOSE,POINT OF CARE 198 MG/DL (70-110)
[2018-04-13 20:48] LABS: GLUCOMETER DEV NAME(LOC) 5S 1M; GLUCOSE,POINT OF CARE 166 MG/DL (70-110)
[2018-04-13 20:49] LABS: GLUCOMETER DEV NAME(LOC) 5S 1M; GLUCOSE,POINT OF CARE 163 MG/DL (70-110)
[2018-04-13 22:44] LABS: GLUCOMETER DEV NAME(LOC) 5N 2S; GLUCOSE,POINT OF CARE 205 MG/DL (70-110)
[2018-04-13 23:24] LABS: GLUCOMETER DEV NAME(LOC) 5S 2Q; GLUCOSE,POINT OF CARE 183 MG/DL (70-110)
[2018-04-14] MEDS: ACETAMINOPHEN 325 MG TABLET PO PRN (02:13)
[2018-04-14 04:18] VITALS: BP 124/80
[2018-04-14] MEDS: INSULIN LISPRO 100 UNITS/ML SQ PRN ×3 (06:02→17:44)
[2018-04-14 06:49] LABS: CALCIUM, TOTAL 8.6 mg/dL (8.8-10.5); CREATININE 1.29 mg/dL (0.60-1.30); MAGNESIUM 2.2 mg/dL (1.80-2.40); PHOSPHORUS 3.6 mg/dL (2.5-4.9); POTASSIUM 4.6 mmol/L (3.5-5.1)
[2018-04-14] MEDS: DOCUSATE SODIUM 100 MG CAPSULE PO SCH ×2 (07:56→21:00)
[2018-04-14 08:00] VITALS: BP 107/69
[2018-04-14] MEDS: ATORVASTATIN CALCIUM 20 MG TABLET PO SCH (08:13)
[2018-04-14] MEDS: HEPARIN SODIUM,PORCINE 5,000 UNITS/ML VIAL SQ SCH ×2 (08:14→21:20)
[2018-04-14] MEDS: ASPIRIN 81 MG CHEWABLE TABLET PO SCH (08:14)
[2018-04-14] MEDS: MAGNESIUM OXIDE 400 MG TABLET PO SCH (08:14)
[2018-04-14] MEDS: CARVEDILOL 3.125 MG TABLET PO SCH ×2 (08:14→21:00)
[2018-04-14] MEDS: PANTOPRAZOLE SODIUM 40 MG/VIAL IVP SCH (08:22)
[2018-04-14] MEDS: AMINO ACIDS/PROTEIN HYDROLYS 30 ML TUBE PO SCH ×2 (12:04→17:22)
[2018-04-14 12:11] VITALS: BP 122/74
[2018-04-14] MEDS ORDERED: SODIUM CHLORIDE 0.9% 100 ML ONE (16:10)
[2018-04-14] MEDS: CIPROFLOXACIN 400 MG/D5% WATER 200 ML IV SCH (16:19)
[2018-04-14 17:02] VITALS: BP 112/77
[2018-04-14] MEDS: MetroNIDAZOLE 500 MG/NACL 100 ML IV SCH (17:22)
[2018-04-14 18:34] LABS: GLUCOMETER DEV NAME(LOC) 5S 1M; GLUCOSE,POINT OF CARE 157 MG/DL (70-110)
[2018-04-14 18:34] LABS: GLUCOMETER DEV NAME(LOC) 5S 1M; GLUCOSE,POINT OF CARE 176 MG/DL (70-110)
[2018-04-14 19:47] VITALS: BP 102/71
[2018-04-14] MEDS: INSULIN GLARGINE,HUM.REC.ANLOG 100 UNITS/ML SQ SCH (21:22)
[2018-04-14 22:28] LABS: C.DIFF GDH ANTIGEN, Stool Negative (Negative); C.DIFF TOXINS A&B, Stool Negative (Negative)
[2018-04-14 23:38] LABS: GLUCOMETER DEV NAME(LOC) 5N 1P; GLUCOSE,POINT OF CARE 187 MG/DL (70-110)
[2018-04-14 23:38] LABS: GLUCOMETER DEV NAME(LOC) 5S 1M; GLUCOSE,POINT OF CARE 155 MG/DL (70-110)
[2018-04-14 23:45] VITALS: BP 109/70
[2018-04-15] MEDS ORDERED: SODIUM CHLORIDE 0.9% 100 ML ONE (01:02)
[2018-04-15] MEDS: MetroNIDAZOLE 500 MG/NACL 100 ML IV SCH ×3 (01:06→16:59)
[2018-04-15] MEDS: INSULIN LISPRO 100 UNITS/ML SQ PRN ×4 (01:08→18:17)
[2018-04-15 03:38] VITALS: BP 107/71
[2018-04-15] MEDS: CIPROFLOXACIN 400 MG/D5% WATER 200 ML IV SCH ×2 (03:41→15:36)
[2018-04-15 05:51] LABS: BASOPHILS % (AUTO) 0.7 % (0.0-2.0); EOSINOPHILS % (AUTO) 2.7 % (1.0-6.0); HEMATOCRIT 29.3 % (41-53); HEMOGLOBIN 10.2 g/dL (13.5-17.5); LYMPHOCYTES # (AUTO) 1.5 K/uL (1.0-4.8); LYMPHOCYTES % (AUTO) 14.6 % (22.0-44.0); MEAN CORPUSCULAR HEMOGLOBIN 31.8 pg (26.0-34.0); MEAN CORPUSCULAR HGB CONC 34.7 G/dL (31.0-37.0); MEAN CORPUSCULAR VOLUME 92 fL (80-100); MONOCYTES # (AUTO) 1.1 K/uL (0.1-1.0); MONOCYTES % (AUTO) 10.5 % (2.0-9.0); NEUTROPHILS # (AUTO) 7.4 K/uL (1.8-7.7); NEUTROPHILS % (AUTO) 71.5 % (40.0-70.0); PLATELET COUNT (AUTO) 271 K/uL (150-450); RED BLOOD CELL COUNT(AUTO) 3.19 MIL/uL (4.50-5.90); RED CELL DISTRIBUTION WIDTH 12.9 % (11.5-14.5)
[2018-04-15 05:59] LABS: BILIRUBIN,TOTAL 0.4 mg/dL (0.1-1.0); CALCIUM, TOTAL 8.8 mg/dL (8.8-10.5); CREATININE 1.25 mg/dL (0.60-1.30); MAGNESIUM 2.1 mg/dL (1.80-2.40); POTASSIUM 4.2 mmol/L (3.5-5.1); TOTAL PROTEIN, SERUM 6.7 g/dL (6.4-8.2)
[2018-04-15 07:30] VITALS: BP 109/64
[2018-04-15] MEDS: DOCUSATE SODIUM 100 MG CAPSULE PO SCH ×2 (09:00→21:00)
[2018-04-15] MEDS: HEPARIN SODIUM,PORCINE 5,000 UNITS/ML VIAL SQ SCH ×2 (09:28→21:01)
[2018-04-15] MEDS: MAGNESIUM OXIDE 400 MG TABLET PO SCH (09:28)
[2018-04-15] MEDS: ASPIRIN 81 MG CHEWABLE TABLET PO SCH (09:28)
[2018-04-15] MEDS: CARVEDILOL 3.125 MG TABLET PO SCH ×2 (09:28→21:00)
[2018-04-15] MEDS: PANTOPRAZOLE SODIUM 40 MG/VIAL IVP SCH (09:28)
[2018-04-15] MEDS: ATORVASTATIN CALCIUM 20 MG TABLET PO SCH (09:28)
[2018-04-15 11:17] VITALS: BP 110/72
[2018-04-15] MEDS: AMINO ACIDS/PROTEIN HYDROLYS 30 ML TUBE PO SCH ×2 (12:12→17:00)
[2018-04-15 15:23] VITALS: BP 102/64
[2018-04-15] MEDS: LACTOBACILLUS ACIDOPHILUS/BULGARICUS GRANULES PACKET PO SCH ×2 (15:35→21:00)
[2018-04-15 15:44] LABS: APPEARANCE,URINE CLOUDY (CLEAR); BILIRUBIN,URINE NEGATIVE (NEGATIVE); GLUCOSE, URINE (UA) NEGATIVE (NEGATIVE); KETONES,URINE NEGATIVE (NEGATIVE); LEUKOCYTE ESTERASE ,URINE SMALL (NEGATIVE); NITRATE,URINE NEGATIVE (NEGATIVE); PROTEIN,URINE SEE CONFIRM (NEGATIVE); UROBILINOGEN,URINE 0.2 mg/dL (<=1.0)
[2018-04-15 16:06] LABS: OCCULT BLOOD,URINE SMALL (NEGATIVE)
[2018-04-15 16:07] LABS: SULFOSALICYLIC ACID,URINE 2+ (Negative)
[2018-04-15 16:08] LABS: BACTERIA,URINE Few /HPF (None Seen); YEAST,URINE Many /HPF (None Seen)
[2018-04-15 19:21] VITALS: BP 104/69
[2018-04-15] MEDS: INSULIN GLARGINE,HUM.REC.ANLOG 100 UNITS/ML SQ SCH (21:06)
[2018-04-15 23:58] VITALS: BP 116/72
[2018-04-16] MEDS: MetroNIDAZOLE 500 MG/NACL 100 ML IV SCH ×3 (00:42→17:36)
[2018-04-16] MEDS: INSULIN LISPRO 100 UNITS/ML SQ PRN ×4 (00:43→17:47)
[2018-04-16] MEDS ORDERED: SODIUM CHLORIDE 0.9% 100 ML ONE (02:59)
[2018-04-16] MEDS: CIPROFLOXACIN 400 MG/D5% WATER 200 ML IV SCH ×2 (03:04→15:41)
[2018-04-16 04:49] VITALS: BP 111/62
[2018-04-16 07:14] VITALS: BP 117/65
[2018-04-16 07:32] LABS: CALCIUM, TOTAL 8.7 mg/dL (8.8-10.5); CREATININE 1.3 mg/dL (0.60-1.30); POTASSIUM 4.2 mmol/L (3.5-5.1)
[2018-04-16 07:43] LABS: GLUCOMETER DEV NAME(LOC) 5N 2S; GLUCOSE,POINT OF CARE 161 MG/DL (70-110)
[2018-04-16 07:43] LABS: GLUCOMETER DEV NAME(LOC) 5N 2S; GLUCOSE,POINT OF CARE 158 MG/DL (70-110)
[2018-04-16 07:43] LABS: GLUCOMETER DEV NAME(LOC) 5N 2S; GLUCOSE,POINT OF CARE 204 MG/DL (70-110)
[2018-04-16 07:43] LABS: GLUCOMETER DEV NAME(LOC) 5N 2S; GLUCOSE,POINT OF CARE 188 MG/DL (70-110)
[2018-04-16 07:43] LABS: GLUCOMETER DEV NAME(LOC) 5N 2S; GLUCOSE,POINT OF CARE 158 MG/DL (70-110)
[2018-04-16] MEDS: CARVEDILOL 3.125 MG TABLET PO SCH ×2 (07:47→20:44)
[2018-04-16] MEDS: ATORVASTATIN CALCIUM 20 MG TABLET PO SCH (07:47)
[2018-04-16] MEDS: MAGNESIUM OXIDE 400 MG TABLET PO SCH (07:47)
[2018-04-16] MEDS: LACTOBACILLUS ACIDOPHILUS/BULGARICUS GRANULES PACKET PO SCH ×3 (07:47→20:39)
[2018-04-16] MEDS: HEPARIN SODIUM,PORCINE 5,000 UNITS/ML VIAL SQ SCH ×2 (07:47→20:39)
[2018-04-16] MEDS: ASPIRIN 81 MG CHEWABLE TABLET PO SCH (07:48)
[2018-04-16] MEDS: DOCUSATE SODIUM 100 MG CAPSULE PO SCH ×2 (07:48→20:44)
[2018-04-16] MEDS: PANTOPRAZOLE SODIUM 40 MG/VIAL IVP SCH (07:48)
[2018-04-16 07:54] LABS: GLUCOMETER DEV NAME(LOC) 5S 2Q; GLUCOSE,POINT OF CARE 221 MG/DL (70-110)
[2018-04-16 07:54] LABS: GLUCOMETER DEV NAME(LOC) 5S 2Q; GLUCOSE,POINT OF CARE 176 MG/DL (70-110)
[2018-04-16 07:54] LABS: GLUCOMETER DEV NAME(LOC) 5S 2Q; GLUCOSE,POINT OF CARE 165 MG/DL (70-110)
[2018-04-16 08:23] LABS: URIC ACID 3.8 mg/dL (2.6-7.2)
[2018-04-16] MEDS: LISINOPRIL 5 MG TABLET PO SCH (08:52)
[2018-04-16 10:25] LABS: ABG A-A DIFF O2 40.6 mmHg (10-20.0); ABG BASE EXCESS 3.3 mmol/L (-2.0-3.0); ABG CARBOXYHEMOGLOBIN 0.3 % (0.0-1.5); ABG HCO3 27.4 mmol/L (22.0-26.0); ABG METHEMOGLOBIN 0.3 % (0.0-1.5); ABG OXYGEN SATURATION 98.3 % (95.0-98.0); ABG OXYHEMOGLOBIN 97.7 % (94.0-100.0); ABG PCO2 38 mmHg (35-45); ABG PH 7.466 (7.35-7.450); ABG TOTAL HEMOGLOBIN 10.8 G/dL (12.0-18.0); PO2, ARTERIAL BG 113.7 mmHg (79.0-87.0); SOURCE, BLOOD GAS ARTERIAL; TEMPERATURE, FAHRENHEIT, BG 98.6 FAHREN (96.0-98.6)
[2018-04-16 10:26] LABS: SITE, BLOOD GAS RT RADIAL
[2018-04-16 10:27] LABS: O2 DEVICE,BLOOD GAS TRACH COLLAR (ROOM AIR)
[2018-04-16 11:14] VITALS: BP 105/60
[2018-04-16] MEDS: AMINO ACIDS/PROTEIN HYDROLYS 30 ML TUBE PO SCH ×2 (11:43→17:45)
[2018-04-16 15:26] VITALS: BP 110/56
[2018-04-16 19:53] VITALS: BP 99/56
[2018-04-16] MEDS: INSULIN GLARGINE,HUM.REC.ANLOG 100 UNITS/ML SQ SCH (20:43)
[2018-04-16 23:28] VITALS: BP 103/51
[2018-04-17] MEDS: INSULIN LISPRO 100 UNITS/ML SQ PRN ×4 (00:17→18:26)
[2018-04-17] MEDS: MetroNIDAZOLE 500 MG/NACL 100 ML IV SCH ×3 (00:18→17:11)
[2018-04-17] MEDS: CIPROFLOXACIN 400 MG/D5% WATER 200 ML IV SCH ×2 (03:54→15:44)
[2018-04-17 04:05] VITALS: BP 110/62
[2018-04-17] MEDS: ACETAMINOPHEN 325 MG TABLET PO PRN (05:52)
[2018-04-17 06:13] LABS: BASOPHILS % (AUTO) 0.6 % (0.0-2.0); EOSINOPHILS % (AUTO) 2.8 % (1.0-6.0); HEMATOCRIT 29.1 % (41-53); HEMOGLOBIN 10.3 g/dL (13.5-17.5); LYMPHOCYTES # (AUTO) 1.6 K/uL (1.0-4.8); LYMPHOCYTES % (AUTO) 16.8 % (22.0-44.0); MEAN CORPUSCULAR HEMOGLOBIN 32.2 pg (26.0-34.0); MEAN CORPUSCULAR HGB CONC 35.3 G/dL (31.0-37.0); MEAN CORPUSCULAR VOLUME 91 fL (80-100); MONOCYTES % (AUTO) 10.2 % (2.0-9.0); NEUTROPHILS # (AUTO) 6.6 K/uL (1.8-7.7); NEUTROPHILS % (AUTO) 69.6 % (40.0-70.0); PLATELET COUNT (AUTO) 294 K/uL (150-450); RED BLOOD CELL COUNT(AUTO) 3.18 MIL/uL (4.50-5.90); RED CELL DISTRIBUTION WIDTH 12.7 % (11.5-14.5)
[2018-04-17 06:28] LABS: ALBUMIN 2.1 g/dL (3.4-5.0); BILIRUBIN,TOTAL 0.4 mg/dL (0.1-1.0); CALCIUM, TOTAL 9.1 mg/dL (8.8-10.5); CREATININE 1.24 mg/dL (0.60-1.30); MAGNESIUM 2.1 mg/dL (1.80-2.40); POTASSIUM 4.2 mmol/L (3.5-5.1); TOTAL PROTEIN, SERUM 6.8 g/dL (6.4-8.2)
[2018-04-17 07:20] VITALS: BP 98/61
[2018-04-17] MEDS: HEPARIN SODIUM,PORCINE 5,000 UNITS/ML VIAL SQ SCH ×2 (08:42→20:40)
[2018-04-17] MEDS: ATORVASTATIN CALCIUM 20 MG TABLET PO SCH (08:42)
[2018-04-17] MEDS: LISINOPRIL 5 MG TABLET PO SCH (08:42)
[2018-04-17] MEDS: DOCUSATE SODIUM 100 MG CAPSULE PO SCH ×2 (08:42→20:39)
[2018-04-17] MEDS: ASPIRIN 81 MG CHEWABLE TABLET PO SCH (08:42)
[2018-04-17] MEDS: CARVEDILOL 3.125 MG TABLET PO SCH ×2 (08:42→20:40)
[2018-04-17] MEDS: MAGNESIUM OXIDE 400 MG TABLET PO SCH (08:42)
[2018-04-17] MEDS: LACTOBACILLUS ACIDOPHILUS/BULGARICUS GRANULES PACKET PO SCH ×3 (08:43→20:40)
[2018-04-17] MEDS: PANTOPRAZOLE SODIUM 40 MG/VIAL IVP SCH (08:43)
[2018-04-17 11:26] VITALS: BP 90/53
[2018-04-17] MEDS: AMINO ACIDS/PROTEIN HYDROLYS 30 ML TUBE PO SCH (12:43)
[2018-04-17 16:07] VITALS: BP 98/66
[2018-04-17 20:12] VITALS: BP 94/63
[2018-04-17] MEDS: INSULIN GLARGINE,HUM.REC.ANLOG 100 UNITS/ML SQ SCH (20:40)
[2018-04-18] VITALS (8 sets, daily range): BP systolic 96–110; BP diastolic 57–72
[2018-04-18] MEDS: INSULIN LISPRO 100 UNITS/ML SQ PRN ×4 (00:17→17:57)
[2018-04-18] MEDS: MetroNIDAZOLE 500 MG/NACL 100 ML IV SCH ×3 (00:18→17:07)
[2018-04-18] MEDS: CIPROFLOXACIN 400 MG/D5% WATER 200 ML IV SCH ×2 (04:06→15:34)
[2018-04-18 06:04] LABS: GLUCOMETER DEV NAME(LOC) 5N 1P; GLUCOSE,POINT OF CARE 156 MG/DL (70-110)
[2018-04-18 06:04] LABS: GLUCOMETER DEV NAME(LOC) 5N 2S; GLUCOSE,POINT OF CARE 221 MG/DL (70-110)
[2018-04-18 06:04] LABS: GLUCOMETER DEV NAME(LOC) 5N 2S; GLUCOSE,POINT OF CARE 150 MG/DL (70-110)
[2018-04-18 06:04] LABS: GLUCOMETER DEV NAME(LOC) 5N 1P; GLUCOSE,POINT OF CARE 151 MG/DL (70-110)
[2018-04-18 06:04] LABS: GLUCOMETER DEV NAME(LOC) 5N 2S; GLUCOSE,POINT OF CARE 171 MG/DL (70-110)
[2018-04-18 06:05] LABS: GLUCOMETER DEV NAME(LOC) 5N 2S; GLUCOSE,POINT OF CARE 187 MG/DL (70-110)
[2018-04-18 06:05] LABS: GLUCOMETER DEV NAME(LOC) 5N 2S; GLUCOSE,POINT OF CARE 143 MG/DL (70-110)
[2018-04-18 06:05] LABS: GLUCOMETER DEV NAME(LOC) 5N 2S; GLUCOSE,POINT OF CARE 161 MG/DL (70-110)
[2018-04-18 06:05] LABS: GLUCOMETER DEV NAME(LOC) 5N 2S; GLUCOSE,POINT OF CARE 161 MG/DL (70-110)
[2018-04-18 06:05] LABS: GLUCOMETER DEV NAME(LOC) 5N 2S; GLUCOSE,POINT OF CARE 176 MG/DL (70-110)
[2018-04-18] MEDS: LACTOBACILLUS ACIDOPHILUS/BULGARICUS GRANULES PACKET PO SCH (08:03)
[2018-04-18] MEDS: DOCUSATE SODIUM 100 MG CAPSULE PO SCH (08:03)
[2018-04-18] MEDS: HEPARIN SODIUM,PORCINE 5,000 UNITS/ML VIAL SQ SCH ×2 (08:03→19:50)
[2018-04-18] MEDS: PANTOPRAZOLE SODIUM 40 MG/VIAL IVP SCH (08:03)
[2018-04-18] MEDS: ATORVASTATIN CALCIUM 20 MG TABLET PO SCH (08:03)
[2018-04-18] MEDS: MAGNESIUM OXIDE 400 MG TABLET PO SCH (08:03)
[2018-04-18] MEDS: ASPIRIN 81 MG CHEWABLE TABLET PO SCH (08:04)
[2018-04-18] MEDS: CARVEDILOL 3.125 MG TABLET PO SCH (08:20)
[2018-04-18] MEDS: LISINOPRIL 5 MG TABLET PO SCH (08:20)
[2018-04-18] MEDS ORDERED: METOPROLOL SUCCINATE 25 MG ER TABLET PO SCH (10:00)
[2018-04-18 10:35] LABS: BASOPHILS % (AUTO) 0.8 % (0.0-2.0); EOSINOPHILS % (AUTO) 3.8 % (1.0-6.0); HEMATOCRIT 28.3 % (41-53); HEMOGLOBIN 9.9 g/dL (13.5-17.5); LYMPHOCYTES # (AUTO) 1.7 K/uL (1.0-4.8); LYMPHOCYTES % (AUTO) 17.2 % (22.0-44.0); MEAN CORPUSCULAR HEMOGLOBIN 32.2 pg (26.0-34.0); MEAN CORPUSCULAR HGB CONC 35.1 G/dL (31.0-37.0); MEAN CORPUSCULAR VOLUME 92 fL (80-100); NEUTROPHILS # (AUTO) 6.7 K/uL (1.8-7.7); NEUTROPHILS % (AUTO) 68.2 % (40.0-70.0); PLATELET COUNT (AUTO) 312 K/uL (150-450); RED BLOOD CELL COUNT(AUTO) 3.09 MIL/uL (4.50-5.90); RED CELL DISTRIBUTION WIDTH 12.7 % (11.5-14.5)
[2018-04-18 10:39] LABS: CALCIUM, TOTAL 8.8 mg/dL (8.8-10.5); CREATININE 1.25 mg/dL (0.60-1.30); MAGNESIUM 2.1 mg/dL (1.80-2.40); POTASSIUM 4.1 mmol/L (3.5-5.1)
[2018-04-18] MEDS: LACTOBACILLUS ACIDOPHILUS/BULGARICUS GRANULES PACKET PEG SCH ×2 (15:35→19:50)
[2018-04-18] MEDS ORDERED: ACETAMINOPHEN 650 MG/20.3 ML SOLUTION UDCUP PEG PRN (15:45)
[2018-04-18] MEDS: DOCUSATE SODIUM 100 MG CAPSULE PEG SCH (19:50)
[2018-04-18] MEDS: METOPROLOL SUCCINATE 25 MG ER TABLET PEG SCH (19:51)
[2018-04-18] MEDS: INSULIN GLARGINE,HUM.REC.ANLOG 100 UNITS/ML SQ SCH (20:17)
[2018-04-19] VITALS (7 sets, daily range): BP systolic 97–115; BP diastolic 46–74
[2018-04-19] MEDS: MetroNIDAZOLE 500 MG/NACL 100 ML IV SCH ×3 (02:21→16:45)
[2018-04-19] MEDS: CIPROFLOXACIN 400 MG/D5% WATER 200 ML IV SCH ×2 (04:03→15:29)
[2018-04-19 05:54] LABS: GLUCOMETER DEV NAME(LOC) 5N 1P; GLUCOSE,POINT OF CARE 164 MG/DL (70-110)
[2018-04-19 05:54] LABS: GLUCOMETER DEV NAME(LOC) 5N 1P; GLUCOSE,POINT OF CARE 159 MG/DL (70-110)
[2018-04-19] MEDS: INSULIN LISPRO 100 UNITS/ML SQ PRN (05:54)
[2018-04-19 06:26] LABS: BASOPHILS % (AUTO) 0.7 % (0.0-2.0); EOSINOPHILS % (AUTO) 2.4 % (1.0-6.0); HEMATOCRIT 29.6 % (41-53); HEMOGLOBIN 10.3 g/dL (13.5-17.5); LYMPHOCYTES # (AUTO) 1.8 K/uL (1.0-4.8); MEAN CORPUSCULAR VOLUME 91 fL (80-100); MONOCYTES % (AUTO) 9.8 % (2.0-9.0); NEUTROPHILS # (AUTO) 7.4 K/uL (1.8-7.7); NEUTROPHILS % (AUTO) 70.1 % (40.0-70.0); PLATELET COUNT (AUTO) 336 K/uL (150-450); RED BLOOD CELL COUNT(AUTO) 3.24 MIL/uL (4.50-5.90); RED CELL DISTRIBUTION WIDTH 12.8 % (11.5-14.5)
[2018-04-19 06:53] LABS: ALBUMIN 2.2 g/dL (3.4-5.0); BILIRUBIN,TOTAL 0.3 mg/dL (0.1-1.0); CALCIUM, TOTAL 8.7 mg/dL (8.8-10.5); CREATININE 1.22 mg/dL (0.60-1.30); PHOSPHORUS 4.1 mg/dL (2.5-4.9); POTASSIUM 4.3 mmol/L (3.5-5.1); TOTAL PROTEIN, SERUM 6.7 g/dL (6.4-8.2)
[2018-04-19] MEDS: PANTOPRAZOLE SODIUM 40 MG/VIAL IVP SCH (08:02)
[2018-04-19] MEDS: HEPARIN SODIUM,PORCINE 5,000 UNITS/ML VIAL SQ SCH ×2 (08:02→19:35)
[2018-04-19] MEDS: ASPIRIN 81 MG CHEWABLE TABLET PEG SCH (08:03)
[2018-04-19] MEDS: DOCUSATE SODIUM 100 MG CAPSULE PEG SCH ×2 (08:03→19:35)
[2018-04-19] MEDS: LACTOBACILLUS ACIDOPHILUS/BULGARICUS GRANULES PACKET PEG SCH ×3 (08:03→19:35)
[2018-04-19] MEDS: ATORVASTATIN CALCIUM 20 MG TABLET PEG SCH (08:04)
[2018-04-19] MEDS: MAGNESIUM OXIDE 400 MG TABLET PEG SCH (08:04)
[2018-04-19] MEDS: LISINOPRIL 5 MG TABLET PEG SCH (08:06)
[2018-04-19] MEDS: METOPROLOL SUCCINATE 25 MG ER TABLET PEG SCH ×2 (08:06→19:35)
[2018-04-19 11:19] LABS: GLUCOMETER DEV NAME(LOC) 5N 2S; GLUCOSE,POINT OF CARE 143 MG/DL (70-110)
[2018-04-19 11:19] LABS: GLUCOMETER DEV NAME(LOC) 5N 2S; GLUCOSE,POINT OF CARE 143 MG/DL (70-110)
[2018-04-19 11:19] LABS: GLUCOMETER DEV NAME(LOC) 5N 2S; GLUCOSE,POINT OF CARE 195 MG/DL (70-110)
[2018-04-19 19:18] LABS: GLUCOMETER DEV NAME(LOC) 5N 1P; GLUCOSE,POINT OF CARE 157 MG/DL (70-110)
[2018-04-19 19:18] LABS: GLUCOMETER DEV NAME(LOC) 5N 1P; GLUCOSE,POINT OF CARE 181 MG/DL (70-110)
[2018-04-19] MEDS: INSULIN GLARGINE,HUM.REC.ANLOG 100 UNITS/ML SQ SCH (23:14)
[2018-04-20] MEDS: MetroNIDAZOLE 500 MG/NACL 100 ML IV SCH ×3 (00:32→16:08)
[2018-04-20 04:52] VITALS: BP 101/60
[2018-04-20] MEDS: CIPROFLOXACIN 400 MG/D5% WATER 200 ML IV SCH ×2 (06:15→15:03)
[2018-04-20] MEDS: INSULIN LISPRO 100 UNITS/ML SQ PRN ×3 (06:34→17:40)
[2018-04-20 06:40] LABS: BASOPHILS % (AUTO) 0.5 % (0.0-2.0); EOSINOPHILS % (AUTO) 2.5 % (1.0-6.0); HEMATOCRIT 29.7 % (41-53); HEMOGLOBIN 10.2 g/dL (13.5-17.5); LYMPHOCYTES % (AUTO) 17.9 % (22.0-44.0); MEAN CORPUSCULAR HEMOGLOBIN 31.6 pg (26.0-34.0); MEAN CORPUSCULAR HGB CONC 34.2 G/dL (31.0-37.0); MEAN CORPUSCULAR VOLUME 92 fL (80-100); MONOCYTES # (AUTO) 1.3 K/uL (0.1-1.0); MONOCYTES % (AUTO) 11.2 % (2.0-9.0); NEUTROPHILS # (AUTO) 7.6 K/uL (1.8-7.7); NEUTROPHILS % (AUTO) 67.9 % (40.0-70.0); PLATELET COUNT (AUTO) 349 K/uL (150-450); RED BLOOD CELL COUNT(AUTO) 3.22 MIL/uL (4.50-5.90); RED CELL DISTRIBUTION WIDTH 13.2 % (11.5-14.5)
[2018-04-20 07:16] VITALS: BP 107/66
[2018-04-20 07:18] LABS: GLUCOMETER DEV NAME(LOC) 5N 1P; GLUCOSE,POINT OF CARE 179 MG/DL (70-110)
[2018-04-20 07:18] LABS: GLUCOMETER DEV NAME(LOC) 5N 1P; GLUCOSE,POINT OF CARE 172 MG/DL (70-110)
[2018-04-20 07:32] LABS: ALBUMIN 2.3 g/dL (3.4-5.0); BILIRUBIN,TOTAL 0.4 mg/dL (0.1-1.0); CALCIUM, TOTAL 8.8 mg/dL (8.8-10.5); CREATININE 1.28 mg/dL (0.60-1.30); MAGNESIUM 2.8 mg/dL (1.80-2.40); POTASSIUM 4.5 mmol/L (3.5-5.1); TOTAL PROTEIN, SERUM 6.9 g/dL (6.4-8.2)
[2018-04-20] MEDS: PANTOPRAZOLE SODIUM 40 MG/VIAL IVP SCH (08:26)
[2018-04-20] MEDS: DOCUSATE SODIUM 100 MG CAPSULE PEG SCH ×2 (08:27→20:06)
[2018-04-20] MEDS: METOPROLOL SUCCINATE 25 MG ER TABLET PEG SCH ×2 (08:27→20:05)
[2018-04-20] MEDS: LACTOBACILLUS ACIDOPHILUS/BULGARICUS GRANULES PACKET PEG SCH ×3 (08:27→20:04)
[2018-04-20] MEDS: ASPIRIN 81 MG CHEWABLE TABLET PEG SCH (08:27)
[2018-04-20] MEDS: MAGNESIUM OXIDE 400 MG TABLET PEG SCH (08:27)
[2018-04-20] MEDS: ATORVASTATIN CALCIUM 20 MG TABLET PEG SCH (08:27)
[2018-04-20] MEDS: LISINOPRIL 5 MG TABLET PEG SCH (08:28)
[2018-04-20] MEDS: HEPARIN SODIUM,PORCINE 5,000 UNITS/ML VIAL SQ SCH ×2 (08:28→20:06)
[2018-04-20] MEDS ORDERED: METOPROLOL SUCCINATE 25 MG ER TABLET PEG SCH (09:00)
[2018-04-20] MEDS ORDERED: METOPROLOL SUCCINATE 25 MG ER TABLET PEG ONE (09:30)
[2018-04-20 11:51] VITALS: BP 95/55
[2018-04-20 12:55] LABS: APPEARANCE,URINE CLOUDY (CLEAR); BILIRUBIN,URINE NEGATIVE (NEGATIVE); GLUCOSE, URINE (UA) NEGATIVE (NEGATIVE); KETONES,URINE NEGATIVE (NEGATIVE); LEUKOCYTE ESTERASE ,URINE SMALL (NEGATIVE); NITRATE,URINE NEGATIVE (NEGATIVE); OCCULT BLOOD,URINE SMALL (NEGATIVE); PROTEIN,URINE TRACE (NEGATIVE); UROBILINOGEN,URINE 0.2 mg/dL (<=1.0)
[2018-04-20 13:09] LABS: BACTERIA,URINE Rare /HPF (None Seen)
[2018-04-20 13:10] LABS: YEAST,URINE Many /HPF (None Seen)
[2018-04-20 13:11] LABS: SQUAMOUS EPITHELIAL CELL,UR None Seen /LPF (None Seen)
[2018-04-20 13:39] LABS: GLUCOMETER DEV NAME(LOC) 5N 1P; GLUCOSE,POINT OF CARE 158 MG/DL (70-110)
[2018-04-20 14:30] VITALS: BP 112/63
[2018-04-20 15:55] VITALS: BP 100/62
[2018-04-20 20:00] VITALS: BP 142/98
[2018-04-20] MEDS: INSULIN GLARGINE,HUM.REC.ANLOG 100 UNITS/ML SQ SCH (20:15)
[2018-04-21] VITALS (10 sets, daily range): BP systolic 81–110; BP diastolic 47–68
[2018-04-21] MEDS: MetroNIDAZOLE 500 MG/NACL 100 ML IV SCH ×2 (00:06→08:17)
[2018-04-21] MEDS: INSULIN REGULAR, HUMAN 100 UNITS/ML SQ PRN ×4 (00:09→17:46)
[2018-04-21] MEDS ORDERED: ALBUTEROL SULFATE 2.5 MG/0.5 ML NEB SOLUTION NEB PRN (00:15)
[2018-04-21] MEDS: CIPROFLOXACIN 400 MG/D5% WATER 200 ML IV SCH (03:23)
[2018-04-21 06:50] LABS: BASOPHILS % (AUTO) 0.6 % (0.0-2.0); EOSINOPHILS % (AUTO) 1.6 % (1.0-6.0); HEMATOCRIT 30.1 % (41-53); HEMOGLOBIN 10.4 g/dL (13.5-17.5); LYMPHOCYTES # (AUTO) 1.9 K/uL (1.0-4.8); LYMPHOCYTES % (AUTO) 17.3 % (22.0-44.0); MEAN CORPUSCULAR HEMOGLOBIN 31.6 pg (26.0-34.0); MEAN CORPUSCULAR HGB CONC 34.4 G/dL (31.0-37.0); MEAN CORPUSCULAR VOLUME 92 fL (80-100); MONOCYTES # (AUTO) 1.1 K/uL (0.1-1.0); MONOCYTES % (AUTO) 9.9 % (2.0-9.0); NEUTROPHILS # (AUTO) 7.8 K/uL (1.8-7.7); NEUTROPHILS % (AUTO) 70.6 % (40.0-70.0); PLATELET COUNT (AUTO) 338 K/uL (150-450); RED BLOOD CELL COUNT(AUTO) 3.28 MIL/uL (4.50-5.90); RED CELL DISTRIBUTION WIDTH 13.1 % (11.5-14.5)
[2018-04-21 07:29] LABS: ALBUMIN 2.3 g/dL (3.4-5.0); BILIRUBIN,TOTAL 0.4 mg/dL (0.1-1.0); CALCIUM, TOTAL 8.6 mg/dL (8.8-10.5); CREATININE 1.27 mg/dL (0.60-1.30); MAGNESIUM 1.9 mg/dL (1.80-2.40); POTASSIUM 4.6 mmol/L (3.5-5.1); TOTAL PROTEIN, SERUM 6.8 g/dL (6.4-8.2)
[2018-04-21 07:34] LABS: GLUCOMETER DEV NAME(LOC) 5N 1P; GLUCOSE,POINT OF CARE 157 MG/DL (70-110)
[2018-04-21 07:34] LABS: GLUCOMETER DEV NAME(LOC) 5N 1P; GLUCOSE,POINT OF CARE 160 MG/DL (70-110)
[2018-04-21 07:34] LABS: GLUCOMETER DEV NAME(LOC) 5N 1P; GLUCOSE,POINT OF CARE 171 MG/DL (70-110)
[2018-04-21 07:34] LABS: GLUCOMETER DEV NAME(LOC) 5N 1P; GLUCOSE,POINT OF CARE 180 MG/DL (70-110)
[2018-04-21] MEDS: PANTOPRAZOLE SODIUM 40 MG/VIAL IVP SCH (08:18)
[2018-04-21] MEDS: DOCUSATE SODIUM 100 MG CAPSULE PEG SCH ×2 (08:18→21:00)
[2018-04-21] MEDS: ASPIRIN 81 MG CHEWABLE TABLET PEG SCH (08:18)
[2018-04-21] MEDS: LACTOBACILLUS ACIDOPHILUS/BULGARICUS GRANULES PACKET PEG SCH ×3 (08:19→21:17)
[2018-04-21] MEDS: MAGNESIUM OXIDE 400 MG TABLET PEG SCH (08:19)
[2018-04-21] MEDS: ATORVASTATIN CALCIUM 20 MG TABLET PEG SCH (08:19)
[2018-04-21] MEDS: HEPARIN SODIUM,PORCINE 5,000 UNITS/ML VIAL SQ SCH ×2 (08:19→21:28)
[2018-04-21] MEDS: METOPROLOL SUCCINATE 25 MG ER TABLET PEG SCH (08:19)
[2018-04-21] MEDS: LISINOPRIL 5 MG TABLET PEG SCH (09:00)
[2018-04-21] MEDS ORDERED: SODIUM CHLORIDE 0.9% 500 ML IV ONE (12:30)
[2018-04-21 12:43] LABS: GLUCOMETER DEV NAME(LOC) 5N 1P; GLUCOSE,POINT OF CARE 141 MG/DL (70-110)
[2018-04-21 12:53] LABS: INR 1.1 (0.9-1.1)
[2018-04-21] MEDS ORDERED: SODIUM CHLORIDE 0.9% 0 ML IV ONE (12:57)
[2018-04-21 15:43] LABS: C.DIFF GDH ANTIGEN, Stool Negative (Negative); C.DIFF TOXINS A&B, Stool Negative (Negative)
[2018-04-21] MEDS ORDERED: SODIUM CHLORIDE 0.9% 250 ML IV ONE (15:55)
[2018-04-21] MEDS ORDERED: DOPamine HCL 400 MG/D5%-WATER 250 ML IV PRN (16:05)
[2018-04-21] MEDS: FLUCONAZOLE 400 MG/NACL ISOOSM 200 ML IV SCH (17:23)
[2018-04-21 19:53] LABS: GLUCOSE,POINT OF CARE 177 MG/DL (70-110)
[2018-04-21] MEDS: INSULIN GLARGINE,HUM.REC.ANLOG 100 UNITS/ML SQ SCH (21:19)
[2018-04-21 22:52] LABS: GLUCOSE,POINT OF CARE 163 MG/DL (70-110)
[2018-04-22] VITALS: BP 104/68
[2018-04-22] MEDS: INSULIN REGULAR, HUMAN 100 UNITS/ML SQ PRN ×3 (00:13→17:57)
[2018-04-22 04:00] VITALS: BP 116/78
[2018-04-22 05:22] LABS: BASOPHILS % (AUTO) 0.6 % (0.0-2.0); EOSINOPHILS % (AUTO) 1.4 % (1.0-6.0); HEMATOCRIT 30.1 % (41-53); HEMOGLOBIN 10.2 g/dL (13.5-17.5); LYMPHOCYTES # (AUTO) 2.2 K/uL (1.0-4.8); LYMPHOCYTES % (AUTO) 15.9 % (22.0-44.0); MEAN CORPUSCULAR HEMOGLOBIN 31.3 pg (26.0-34.0); MEAN CORPUSCULAR VOLUME 92 fL (80-100); MONOCYTES # (AUTO) 1.3 K/uL (0.1-1.0); MONOCYTES % (AUTO) 9.1 % (2.0-9.0); NEUTROPHILS # (AUTO) 10.1 K/uL (1.8-7.7); PLATELET COUNT (AUTO) 358 K/uL (150-450); RED BLOOD CELL COUNT(AUTO) 3.26 MIL/uL (4.50-5.90); RED CELL DISTRIBUTION WIDTH 13.7 % (11.5-14.5)
[2018-04-22 05:39] LABS: ALANINE AMINOTRANSFERASE 37 U/L (12-78); ALBUMIN 2.4 g/dL (3.4-5.0); ALKALINE PHOSPHATASE 80 U/L (46-116); ANION GAP 9 mmol/L (8-16); ASPARTATE AMINOTRANSFERASE 26 U/L (15-37); BILIRUBIN,TOTAL 0.5 mg/dL (0.1-1.0); CALCIUM, TOTAL 8.7 mg/dL (8.8-10.5); CARBON DIOXIDE 25 mmol/L (22-29); CHLORIDE 101 mmol/L (98-107); CREATININE 1.15 mg/dL (0.60-1.30); GLOMERULAR FILTR. RATE CALC > 60 mL/min (>60); GLUCOSE,RANDOM 167 mg/dL (70-110); POTASSIUM 4.5 mmol/L (3.5-5.1); SODIUM SERUM 135 mmol/L (136-145); TOTAL PROTEIN, SERUM 7.1 g/dL (6.4-8.2); UREA NITROGEN, BLOOD 32 mg/dL (7-18)
[2018-04-22 06:53] LABS: GLUCOSE,POINT OF CARE 170 MG/DL (70-110)
[2018-04-22 06:53] LABS: GLUCOSE,POINT OF CARE 153 MG/DL (70-110)
[2018-04-22 08:00] VITALS: BP 116/75
[2018-04-22] MEDS: PANTOPRAZOLE SODIUM 40 MG/VIAL IVP SCH (08:55)
[2018-04-22] MEDS: MAGNESIUM OXIDE 400 MG TABLET PEG SCH (08:56)
[2018-04-22] MEDS: HEPARIN SODIUM,PORCINE 5,000 UNITS/ML VIAL SQ SCH ×2 (08:56→21:35)
[2018-04-22] MEDS: ASPIRIN 81 MG CHEWABLE TABLET PEG SCH (08:56)
[2018-04-22] MEDS: LACTOBACILLUS ACIDOPHILUS/BULGARICUS GRANULES PACKET PEG SCH ×3 (08:57→21:34)
[2018-04-22] MEDS: ATORVASTATIN CALCIUM 20 MG TABLET PEG SCH (08:57)
[2018-04-22] MEDS: DOCUSATE SODIUM 100 MG CAPSULE PEG SCH ×2 (08:57→21:00)
[2018-04-22] MEDS: ACETAMINOPHEN 650 MG/20.3 ML SOLUTION UDCUP PEG PRN (11:00)
[2018-04-22] MEDS ORDERED: PHENYLEPHRINE 200 MG/D5%-WATER 250 ML IV PRN (11:12)
[2018-04-22 12:00] VITALS: BP 97/61
[2018-04-22] MEDS ORDERED: LIDOCAINE HCL 2% 30 ML JELLY TP ONE (12:00)
[2018-04-22 16:00] VITALS: BP 92/63
[2018-04-22] MEDS: FLUCONAZOLE 400 MG/NACL ISOOSM 200 ML IV SCH (16:03)
[2018-04-22 20:00] VITALS: BP 89/59
[2018-04-22 20:43] LABS: GLUCOSE,POINT OF CARE 164 MG/DL (70-110)
[2018-04-22] MEDS: INSULIN GLARGINE,HUM.REC.ANLOG 100 UNITS/ML SQ SCH (21:34)
[2018-04-23] VITALS (7 sets, daily range): BP systolic 94–124; BP diastolic 58–75
[2018-04-23] MEDS: INSULIN REGULAR, HUMAN 100 UNITS/ML SQ PRN ×4 (00:53→17:57)
[2018-04-23] MEDS: ACETAMINOPHEN 650 MG/20.3 ML SOLUTION UDCUP PEG PRN (03:22)
[2018-04-23] MEDS ORDERED: SODIUM CHLORIDE 0.9% 100 ML ONE (03:56)
[2018-04-23 04:41] LABS: BASOPHILS % (AUTO) 0.5 % (0.0-2.0); EOSINOPHILS % (AUTO) 1.6 % (1.0-6.0); HEMATOCRIT 28.9 % (41-53); HEMOGLOBIN 9.8 g/dL (13.5-17.5); LYMPHOCYTES # (AUTO) 1.8 K/uL (1.0-4.8); LYMPHOCYTES % (AUTO) 13.7 % (22.0-44.0); MEAN CORPUSCULAR HEMOGLOBIN 31.4 pg (26.0-34.0); MEAN CORPUSCULAR HGB CONC 33.8 G/dL (31.0-37.0); MEAN CORPUSCULAR VOLUME 93 fL (80-100); MONOCYTES # (AUTO) 1.2 K/uL (0.1-1.0); MONOCYTES % (AUTO) 9.1 % (2.0-9.0); NEUTROPHILS # (AUTO) 9.9 K/uL (1.8-7.7); NEUTROPHILS % (AUTO) 75.1 % (40.0-70.0); PLATELET COUNT (AUTO) 323 K/uL (150-450); RED BLOOD CELL COUNT(AUTO) 3.11 MIL/uL (4.50-5.90); RED CELL DISTRIBUTION WIDTH 13.8 % (11.5-14.5)
[2018-04-23 04:48] LABS: GLUCOSE,POINT OF CARE 167 MG/DL (70-110)
[2018-04-23 04:48] LABS: GLUCOSE,POINT OF CARE 146 MG/DL (70-110)
[2018-04-23 04:51] LABS: ALBUMIN 2.4 g/dL (3.4-5.0); BILIRUBIN,TOTAL 0.5 mg/dL (0.1-1.0); CALCIUM, TOTAL 8.4 mg/dL (8.8-10.5); CREATININE 1.22 mg/dL (0.60-1.30); POTASSIUM 4.7 mmol/L (3.5-5.1); TOTAL PROTEIN, SERUM 6.2 g/dL (6.4-8.2)
[2018-04-23 06:09] LABS: GLUCOSE,POINT OF CARE 149 MG/DL (70-110)
[2018-04-23] MEDS: PANTOPRAZOLE SODIUM 40 MG/VIAL IVP SCH (08:57)
[2018-04-23] MEDS: HEPARIN SODIUM,PORCINE 5,000 UNITS/ML VIAL SQ SCH (08:57)
[2018-04-23] MEDS: DOCUSATE SODIUM 100 MG CAPSULE PEG SCH (08:58)
[2018-04-23] MEDS: LACTOBACILLUS ACIDOPHILUS/BULGARICUS GRANULES PACKET PEG SCH ×2 (08:58→16:13)
[2018-04-23] MEDS: ASPIRIN 81 MG CHEWABLE TABLET PEG SCH (08:58)
[2018-04-23] MEDS: ATORVASTATIN CALCIUM 20 MG TABLET PEG SCH (08:58)
[2018-04-23] MEDS: FLUCONAZOLE 400 MG/NACL ISOOSM 200 ML IV SCH (16:14)
[2018-04-24 06:34] LABS: GLUCOSE,POINT OF CARE 149 MG/DL (70-110)
[2018-04-24 06:35] LABS: GLUCOSE,POINT OF CARE 182 MG/DL (70-110)
== END 2018-04-23 18:00 | DRG 5 ==
LOC: EMS 09:45 → ICU 12:15 → 5S 04-11 14:45 → 5N 04-15 06:58 → ICU 04-21 14:55
PROVIDERS: ADMIT Internal Medicine; ATTEND Internal Medicine
PROC: 5A1955Z Respiratory Ventilation, Greater than 96 Consecutive Hours (ICD-10-PCS; principal; 2018-04-02)
PROC: 0BH17EZ Insertion of Endotracheal Airway into Trachea, Via Natural or Artificial Opening (ICD-10-PCS; 2018-04-02)
PROC: 05H533Z Insertion of Infusion Device into Right Subclavian Vein, Percutaneous Approach (ICD-10-PCS; 2018-04-04)
PROC: B546ZZA Ultrasonography of Right Subclavian Vein, Guidance (ICD-10-PCS; 2018-04-04)
PROC: 0B113F4 Bypass Trachea to Cutaneous with Tracheostomy Device, Percutaneous Approach (ICD-10-PCS; 2018-04-09)
PROC: 0BJ08ZZ Inspection of Tracheobronchial Tree, Via Natural or Artificial Opening Endoscopic (ICD-10-PCS; 2018-04-22)
DX: A41.52 Sepsis due to Pseudomonas (principal); I21.4 Non-ST elevation (NSTEMI) myocardial infarction; N17.0 Acute kidney failure with tubular necrosis; I46.9 Cardiac arrest, cause unspecified; J69.0 Pneumonitis due to inhalation of food and vomit; G93.40 Encephalopathy, unspecified; B49 Unspecified mycosis; E43 Unspecified severe protein-calorie malnutrition; I47.2 Ventricular tachycardia; J96.01 Acute respiratory failure with hypoxia; R13.10 Dysphagia, unspecified; I42.9 Cardiomyopathy, unspecified; K21.9 Gastro-esophageal reflux disease without esophagitis; I50.9 Heart failure, unspecified; N18.9 Chronic kidney disease, unspecified; I13.0 Hypertensive heart and chronic kidney disease with heart failure and stage 1 through stage 4 chronic kidney disease, or unspecified chronic kidney disease; E78.00 Pure hypercholesterolemia, unspecified; K59.00 Constipation, unspecified; I25.10 Atherosclerotic heart disease of native coronary artery without angina pectoris; Y95 Nosocomial condition; E11.22 Type 2 diabetes mellitus with diabetic chronic kidney disease; E11.65 Type 2 diabetes mellitus with hyperglycemia; N39.0 Urinary tract infection, site not specified; E87.5 Hyperkalemia; R23.3 Spontaneous ecchymoses; E87.2 Acidosis; E87.0 Hyperosmolality and hypernatremia; M62.82 Rhabdomyolysis; I47.1 Supraventricular tachycardia; E78.5 Hyperlipidemia, unspecified; I42.0 Dilated cardiomyopathy; J15.1 Pneumonia due to Pseudomonas; Z78.1 Physical restraint status; Z86.79 Personal history of other diseases of the circulatory system; Z95.0 Presence of cardiac pacemaker; Z93.1 Gastrostomy status; Z79.2 Long term (current) use of antibiotics; Z79.82 Long term (current) use of aspirin; Z79.4 Long term (current) use of insulin; Z79.899 Other long term (current) drug therapy; Z99.11 Dependence on respirator [ventilator] status; I25.2 Old myocardial infarction
CPT/HCPCS: 31500; 36245; 36556; 36569; 70450; 70551; 71250; 72192; 74150; 76770; 76937; 82805; 83605; 83735; 84100; 84145; 84156; 84166; 84460; 84550; 86706; 86803; 87040; 87070; 87081; 87086; 87205; 87324; 87340; 87449; 87804; 93005; 93306; 93970; 94002; 94003; 94681; 95816; 96365; 96366; 96368; 99291; C9113; G0238; J0131; J0282; J0712; J0744; J1265; J1450; J1644; J1815; J2185; J2250; J2270; J2370; J2543; J2704; J3370; J3480; J3490; J7030; J7040; J7050; J7060